=== PATIENT | female | born 1980 | race Caucasian/White ===

== ENCOUNTER 2022-04-03 16:15 | Outpatient (CLI) | payer MEDICAID, SELFPAY ==
[2022-04-03 22:25] LABS: Albumin* 2.9 g/dL (3.3-5.0); Chloride* 109 mmol/L (96-114); Sodium* 136 mmol/L (135-149)
[2022-04-03 22:26] LABS: Potassium* 3.7 mmol/L (3.6-5.1)
[2022-04-03 22:28] LABS: Alkaline Phosphatase* 255 U/L (40-150); Aspartate Amino Transferase* 169 U/L (12-35); Bilirubin Total* 2.5 mg/dL (0.1-1.5); Blood Urea Nitrogen* 5 mg/dL (5-24); Calcium* 7.8 mg/dL (8.4-10.6); Carbon Dioxide* 26 mmol/L (20-32); Cholesterol* 122 mg/dL (90-199); Creatinine* 0.6 mg/dL (0.5-1.5); Estimated Glomerular Filt Rate 116 ml/min; Glucose* 93 mg/dL (60-115); Total Protein* 9.2 g/dL (6.0-8.3); Triglycerides* 120 mg/dL (40-149)
[2022-04-03 22:29] LABS: Alanine Aminotransferase* 36 U/L (4-35); HDL Cholesterol* 20 mg/dL (>=50); LDL Cholesterol Calculated 78 mg/dL (<100)
[2022-04-03 23:14] LABS: Hepatitis C Virus Antibody* Negative (Negative)
[2022-04-03 23:18] LABS: Vitamin B12* 683 pg/mL (243-894)
[2022-04-03 23:45] LABS: Free T4 Free Thyroxine* 2.11 ng/dL (0.70-1.85)
[2022-04-07 00:57] LABS: Cardiolipin Antibody IgA <10 APL (<=11); Cardiolipin Antibody IgG <10 GPL (<=14); Cardiolipin Antibody IgM 11 MPL (<=12)
[2022-04-09 15:30] LABS: Prothrombin Time 21.7 sec (12.0-15.5); dRVVT Screen 27 sec (33-44)
[2022-04-09 19:13] LABS: SSA-60 (Ro60) (ENA) IgG 127 AU/mL (0-40); SSA52 (Ro52) (ENA) IgG 129 AU/mL (0-40)
== END 2022-04-03 16:16 | disposition home or self-care (01) ==
PROVIDERS: Visit Provider Family Medicine
DX: Z00.00 Encounter for general adult medical examination without abnormal findings (principal); M35.00 Sjogren syndrome, unspecified; N96 Recurrent pregnancy loss; R19.7 Diarrhea, unspecified; E53.8 Deficiency of other specified B group vitamins; E03.9 Hypothyroidism, unspecified; E66.01 Morbid (severe) obesity due to excess calories; Z78.9 Other specified health status; Z11.59 Encounter for screening for other viral diseases; Z13.6 Encounter for screening for cardiovascular disorders; R79.89 Other specified abnormal findings of blood chemistry
CPT/HCPCS: 80053; 80061; 82607; 82746; 84100; 84439; 84443; 85610; 85613; 85730; 86146; 86147; 86235; 86803

== ENCOUNTER 2022-04-04 11:52 | Outpatient (CLI) | payer MEDICAID, SELFPAY | END 2022-04-04 11:53 | disposition home or self-care (01) | PROVIDERS: Visit Provider Family Medicine | DX: E83.51 Hypocalcemia (principal) | CPT/HCPCS: 82310; 82397; 83970 ==

== ENCOUNTER 2022-04-23 10:43 | Outpatient (CLI) | payer MEDICAID, SELFPAY ==
--- NOTE | 2022-04-23 10:45 | CRLHL7_ITS ---
For Patients: As a result of the Century Cures Act, medical imaging exams and procedure reports are released immediately into your electronic medical record. You may view this report before your referring provider. If you have questions, please contact your health care provider. INDICATION: RUQ PAIN COMPARISON: CT 11/23/2020 TECHNIQUE: Real time amador scale imaging and color Doppler analysis was performed of the right upper quadrant. FINDINGS: The patient`s liver is of normal size and has diffusely coarsened echogenicity. There is a normal appearance of the hepatic IVC and proximal abdominal aorta. There is no evidence of ascites. The gallbladder is of normal size and there is no evidence of intraluminal stones. Mild gallbladder sludge again noted. The gallbladder wall measures 3 mm in thickness. The common bile duct is of normal size and measures 5 mm in diameter at the level of the yeimi hepatis. The pancreas appears normal. There is no evidence of a stone or hydronephrosis within the right kidney. The right kidney measures 14.4 cm in length. IMPRESSION: Mild gallbladder sludge, similar to the prior study. Diffuse hepatic steatosis, also unchanged. Dictated by Brendon Vincent MD @ 04/23/2022 11:58:21 AM (Electronically Signed)
== END 2022-04-23 10:44 | disposition home or self-care (01) ==
LOC: US 10:44
PROVIDERS: PCP Family Medicine; Visit Provider Family Medicine
DX: R10.11 Right upper quadrant pain (principal); R19.7 Diarrhea, unspecified; R01.1 Cardiac murmur, unspecified; E03.9 Hypothyroidism, unspecified
CPT/HCPCS: 76705

== ENCOUNTER 2022-04-25 13:34 | Outpatient (CLI) | payer MEDICAID, SELFPAY ==
[2022-04-25 17:41] LABS: Immature Reticulocyte Fraction 21.9 % (3.0-15.9); Reticulocyte Hemoglobin Equivi 34.4 pg (29.0-35.0); Reticulocyte Percent 2.8 % (0.5-2.0); Reticulocytes Absolute 0.08 # (0.03-0.08)
[2022-04-25 17:47] LABS: Albumin* 2.7 g/dL (3.3-5.0); Chloride* 109 mmol/L (96-114); Potassium* 3.7 mmol/L (3.6-5.1); Sodium* 136 mmol/L (135-149)
[2022-04-25 17:49] LABS: Bilirubin Total* 2.5 mg/dL (0.1-1.5); Creatinine* 0.6 mg/dL (0.5-1.5); Estimated Glomerular Filt Rate 116 ml/min
[2022-04-25 17:50] LABS: Alanine Aminotransferase* 29 U/L (4-35); Alkaline Phosphatase* 183 U/L (40-150); Aspartate Amino Transferase* 90 U/L (12-35); Blood Urea Nitrogen* 4 mg/dL (5-24); Carbon Dioxide* 24 mmol/L (20-32); Total Protein* 8.7 g/dL (6.0-8.3)
[2022-04-25 17:51] LABS: Calcium* 7.9 mg/dL (8.4-10.6); Glucose* 96 mg/dL (60-115); Magnesium* 1.4 mg/dL (1.5-2.6)
[2022-04-25 17:53] LABS: C Reactive Protein* 0.6 mg/dL (0.5-1.0)
[2022-04-25 18:07] LABS: Vitamin D 25 Hydroxy* 21 ng/mL (30-80)
[2022-04-25 18:12] LABS: INR 1.66 (0.91-1.10); Prothrombin Time 20.5 Seconds
[2022-04-25 18:15] LABS: Partial Thromboplastin Time* 37 Seconds (23-33)
[2022-04-25 18:31] LABS: HIV 1/2/P24 Combo Screen* Negative (Negative)
[2022-04-25 18:57] LABS: Fibrinogen* 111 mg/dL (200-450)
[2022-04-27 17:24] LABS: Follicle Stimulating Hormone 10.8 IU/L
[2022-04-27 19:16] LABS: Anti-Nuclear Ab(ANA)IgG ELISA Detected (None Detected)
[2022-04-29 14:18] LABS: ANA Pattern Speckled; ANA Titer >1:2560; Antinuclear AntibodyHEp-2 Detected (<1:80)
[2022-05-02 05:43] LABS: Calcium/Creatinine Ratio Urine 162 mg/g (20-300); Hours Collected Random hr; Total Volume Random mL
== END 2022-04-25 13:35 | disposition home or self-care (01) ==
LOC: LKVREF 13:34
PROVIDERS: PCP Family Medicine; Visit Provider Family Medicine
DX: D64.9 Anemia, unspecified (principal); E03.9 Hypothyroidism, unspecified; E83.51 Hypocalcemia; M35.00 Sjogren syndrome, unspecified; N96 Recurrent pregnancy loss; R79.1 Abnormal coagulation profile; R79.89 Other specified abnormal findings of blood chemistry
CPT/HCPCS: 80053; 82306; 82330; 82340; 83001; 83735; 84439; 84443; 85045; 85384; 85610; 85730; 86039; 86140; 86703; 86860; 86870; 86880

== ENCOUNTER 2022-05-02 08:48 | Outpatient (CLI) | payer MEDICAID, SELFPAY | END 2022-05-02 08:49 | disposition home or self-care (01) | LOC: RAD 08:51 | PROVIDERS: PCP Family Medicine; Visit Provider Family Medicine | DX: R01.1 Cardiac murmur, unspecified (principal); I34.0 Nonrheumatic mitral (valve) insufficiency; I07.1 Rheumatic tricuspid insufficiency | CPT/HCPCS: 93306 ==

== ENCOUNTER 2022-06-04 08:03 | Outpatient (CLI) | payer MEDICAID, SELFPAY ==
[2022-06-04 14:54] LABS: Albumin* 2.8 g/dL (3.3-5.0); Chloride* 112 mmol/L (96-114); Sodium* 138 mmol/L (135-149)
[2022-06-04 14:55] LABS: Potassium* 4.1 mmol/L (3.6-5.1)
[2022-06-04 14:57] LABS: Alkaline Phosphatase* 119 U/L (40-150); Aspartate Amino Transferase* 67 U/L (12-35); Bilirubin Total* 2.1 mg/dL (0.1-1.5); Blood Urea Nitrogen* 5 mg/dL (5-24); Carbon Dioxide* 21 mmol/L (20-32); Creatinine* 0.6 mg/dL (0.5-1.5); Estimated Glomerular Filt Rate 116 ml/min; Total Protein* 8.3 g/dL (6.0-8.3)
[2022-06-04 14:58] LABS: Alanine Aminotransferase* 27 U/L (4-35); Calcium* 7.9 mg/dL (8.4-10.6); Glucose* 90 mg/dL (60-115)
[2022-06-04 15:28] LABS: Thyroid Stimulating Hormone* 0.811 uIU/mL (0.270-4.20)
== END 2022-06-04 08:04 | disposition home or self-care (01) ==
PROVIDERS: PCP Family Medicine; Visit Provider Family Medicine
DX: E03.9 Hypothyroidism, unspecified (principal); E83.51 Hypocalcemia; R79.89 Other specified abnormal findings of blood chemistry
CPT/HCPCS: 80053; 84443

== ENCOUNTER 2022-06-30 10:40 | Outpatient (CLI) | payer MEDICAID, SELFPAY | END 2022-06-30 10:41 | disposition home or self-care (01) | LOC: NFLDREF 07-03 14:28 | PROVIDERS: PCP Family Medicine; Referring Provider Family Medicine; Visit Provider Family Medicine | DX: E03.9 Hypothyroidism, unspecified (principal); R79.89 Other specified abnormal findings of blood chemistry | CPT/HCPCS: 82306; 84443; 84450; 84460 ==

== ENCOUNTER 2022-06-30 10:47 | Outpatient (CLI) | payer MEDICAID, SELFPAY ==
--- NOTE | 2022-06-30 11:30 | CRLHL7_ITS ---
For Patients: As a result of the Century Cures Act, medical imaging exams and procedure reports are released immediately into your electronic medical record. You may view this report before your referring provider. If you have questions, please contact your health care provider. BILATERAL SCREENING MAMMOGRAM WITH COMPUTER-AIDED DETECTION AND TOMOSYNTHESIS TECHNIQUE: CC and MLO views were obtained. These mammographic images have been obtained using full-field digital technique. These mammographic images were interpreted with the benefit of computer-aided detection. Breast Tomosynthesis was used in this interpretation. COMPARISON FILM: Baseline. FINDINGS: There are scattered areas of fibroglandular density IMPRESSION: There is no radiographic evidence for malignancy. ASSESSMENT: BI-RADS Category 1: Negative RECOMMENDATION: Routine screening mammogram in 1 year. A lay language report of this examination will be provided to the patient. Brendon Vincent M.D. Diagnostic Radiologist [email or web address] JAMES/Dictated by: Brendon Vincent MD @ 06/30/2022 12:07:00 PM (Electronically Signed)
== END 2022-06-30 10:48 | disposition home or self-care (01) ==
PROVIDERS: PCP Family Medicine; Visit Provider Family Medicine
DX: Z12.31 Encounter for screening mammogram for malignant neoplasm of breast (principal)
CPT/HCPCS: 77063; 77067

== ENCOUNTER 2022-08-25 09:36 | Outpatient (CLI) | payer MEDICAID, SELFPAY ==
[2022-08-25 13:20] LABS: Free T4 Free Thyroxine* 2.59 ng/dL (0.70-1.85)
== END 2022-08-25 09:37 | disposition home or self-care (01) ==
LOC: FRMREF 12:06
PROVIDERS: PCP Family Medicine; Referring Provider Family Medicine; Visit Provider Family Medicine
DX: E03.9 Hypothyroidism, unspecified (principal)
CPT/HCPCS: 84439; 84443

== ENCOUNTER 2023-04-02 22:13 | Outpatient (REF) | payer MEDICAID, SELFPAY ==
--- OUTSIDE RECORDS SUMMARY | 2023-04-02 22:22 | XMS_ITS | Continuity of Care Document ---
Author Name Unknown Organization [facility] Address [address] [place] [address] Phone Care Team Providers Care Linen Sorter Name Role Phone Marly Gaines MD Unavailable Unavailable Allergies, Adverse Reactions, Alerts Substance Reaction Status Criticality No Known Allergies Active No Inform ation Medications Medication Instructions Dosage Effective Dates (start - stop) Status Comments cevimeline 30 mg capsule take 1 capsule by oral route 3 times every day as needed 30 MG - Active levothyroxine 112 mcg capsule take 1 capsule by oral route every day 112 MCG - Active Vitamin D3 50 mcg (2,000 unit) tablet take 1 Tablet by Oral route every day [address] - [address] - ER 3 mg capsule,delayed,exte nded release take 3 capsule by oral route every evening 9 MG - Active levothyroxine 125 mcg capsule take 1 capsule by oral route every day 125 MCG - No Longer Active pilocarpine 5 mg tablet take 1 tablet by oral route 3 times every day 5 MG - No Longer Active Procedures Procedure Date Office/Outpatient Visit, Est Office/Outpatient Visit, New Routine Venipuncture Specimen Handling Complete Cbc WAuto Diff Wbc Rbc Sed Rate, Nonautomated Assay Of Creatinine Transferase (Ast) (Sgot) Alanine Amino (Alt) (Sgpt) CReactive Protein Dna Antibody, Single Strand Dna Antibody, [place] Nuclear Antigen Antibodies Office/Outpatient Visit, Est Routine Venipuncture Assay Of Serum Albumin Assay Of Creatinine Transferase (Ast) (Sgot) Alanine Amino (Alt) (Sgpt) Complete Cbc, Automated Office/Outpatient Visit, Est Routine Venipuncture Complete Cbc, Automated Assay Of Serum Albumin Assay Of Creatinine Transferase (Ast) (Sgot) Alanine Amino (Alt) (Sgpt) Office/Outpatient Visit, Est Routine Venipuncture Transferase (Ast) (Sgot) Alanine Amino (Alt) (Sgpt) Complete Cbc, Automated Office/Outpatient Visit, New Routine Venipuncture Specimen Handling Complete Cbc WAuto Diff Wbc Rbc Sed Rate, Nonautomated Assay Of Serum Albumin Assay Of Creatinine Transferase (Ast) (Sgot) Alanine Amino (Alt) (Sgpt) CReactive Protein Dna Antibody, Single Strand Dna Antibody, [place] Nuclear Antigen Antibodies Rheumatoid Factor, IGM Rheumatoid Factor, IGG, IGA Advance Directives Directive Yes / No Effective Date File Name No Information Encounters Encounter Description Practice Location Reason(s) For Visit Diagnoses Date Provider Providers Copied on Encounter Office/Outpa tient Visit, Est [facility], [address], [place], [address], [place] tel:[phone] [facility] Follow Up of Sjogren's (chief complaint) Sjogren syndrome with keratoconjun ctivitisAbno rmal results of liver function studies 3 Eder Luke. [facility] [address], [place], [address], [place]. tel:[phone] Referring Provider: Marly Winslow, [facility] [address], [place], [address]. tel:[phone] Office/Outpa tient Visit, New [facility], [address], [place], [address], [place] tel:[phone] [facility] Sjogren's (chief complaint) Sjogren syndrome with keratoconjun ctivitisElev ation of levels of liver transaminase levelsMiscar riageAnemia 3 Eder Luek. [facility] [address], [place], [address], [place]. tel:[phone] Referring Provider: Marly Winslow, [facility] [address], [place], [address]. tel:[phone] Office/Outpa tient Visit, Est [facility], [address], [place], [address], [place] tel:[phone] [facility] , Sjogren's (chief complaint) LeukopeniaSj ogren syndromeElev ated liver enzymesBone [facility] risk medication monitoring 201 [address] Espinoza. [facility] [address], [place], [address], [place]. tel:[phone] Referring Provider: Alexis Winslow, [facility] [address], [place], [address]. tel:[phone] Office/Outpa tient Visit, Est [facility], [address], [place], [address], [place] tel:[phone] [facility] , Sjogren syndromeElev ated liver enzymesBanner Boswell Medical Centere [facility] centerHigh risk medication monitoringSt. Bernards [facility] 8 Ed Espinoza. [facility] [address], [place], [address], [place]. tel:[phone] Referring Provider: Alexis Winslow, [facility] [address], [place], [address]. tel:[phone] Office/Outpa tient Visit, Est [facility], [address], [place], [address], [place] tel:[phone] [facility] , Sjogren's (chief complaint) Sjogren syndromeHigh risk medication monitoringBo [facility] ed liver enzymes 8 Ed Espinoza. [facility] [address], [place], [address], [place]. tel:[phone] Referring Provider: Alexis Winslow, [facility] [address], [place], [address]. tel:[phone] Office/Outpa tient Visit, New [facility], [address], [place], [address], [place] tel:[phone] [facility] , Abnormal Lab Study (chief complaint) Positive AntibodyElev ated liver enzymes 8 Ed Espinoza. [facility] [address], [place], [address], . tel:[phone] Referring Provider: Alexis Winslow, [facility]ana [address], [place], [address]. tel:[phone] Family History Family Member Type Diagnosis Age At Onset Problem (finding) No family hist ory of Systemic lupus erythematosus Problem Family history of hypertensi on Payers Payer name Insurance type Covered alliance party ID Authoriza tiemmanuel(s) Bashir MASON [id number] Social History Type Description Quantity Date Captured Comments Alcohol Use Details Caffeine Use Details No Tobacco Use Status Ex-cigarette smoker Smoking Status Former smoker Tremaine garduno 1 child Smoking Tobacco Use Details Cigarette: Age Stopped: 26 Cigarette: No Details Available Sex Female Vital Signs Date / Time: Height Weight BMI Pulse Rate Blood Pressure Temperature Respiratory Rate Body Surface Area Head Circumference Head Circ. Percentile Wt./Oliver. Percentile BMI percentile Pulse Ox Inhaled Ox 11:04 AM 66.00 in 112.037 kg (247.00 lbs) 39.8 7 kg/m eter (2) 108/60 mm[Hg] 98.40 F Chief Complaint And Reason For Visit From encounter dated '09/08/2022 11:00'. Follow Up of Sjogren's (chief complaint) Reason For Referral Reason For Referral No Information Plan Of Treatment Date Type Action Status Appointment Emma Flower BOOKED History Of Present Illness Encounter Date Complaint History Of Prese nt Illness Follow Up of Sjogren's Sjogren's Sjogren's Sjogren's Sjogren's Abnormal Lab Study Functional Status Date Functional Assessmen t No Information Instructions Date Instruction Additional Infor mation No Information Assessments Type Assessment Date assessment Sjogren syndrome with keratoconj unctivitis assessment Abnormal results of liver functi on studies Patient Care Teams Name Effective Dates (start - stop) Status Members No Information
--- OUTSIDE RECORDS SUMMARY | 2023-04-02 22:22 | XMS_ITS | Continuity of Care Document ---
Author Name Unknown Organization [facility] Address [address] [address] [place] [address] Phone Care Team Providers Care Report Writer Name Role Phone Malka DINORAHSofia Unavailable Unavailable Allergies, Adverse Reactions, Alerts Substance Reaction Status Criticality No Known Allergies Active No Inform ation Medications Medication Instructions Dosage Effective Dates (start - stop) Status Comments Herbal Medications/Suppleme nts unknown flax seed oil - Active COLLAGEN (unknown strength) take 1 capsule by oral route every day Not Available - Active budesonide DR - ER 3 mg capsule,delayed,exte nded release take 1 capsule by ORAL route every day in the morning 3 MG - Active budesonide DR - ER 3 mg capsule,delayed,exte nded release take 3 capsule by ORAL route every day in the morning 9 MG - Active levothyroxine 125 mcg tablet take 1 tablet by oral route every day 125 MCG - Active VITAMINS (unknown strength) take 1 tablet by oral route every day Not Available - Active Vitamin D3 50 mcg (2,000 unit) tablet take 1 tablet by oral route every morning 1 tablet - Active cevimeline 30 mg capsule take 1 capsule by oral route 4 times every day 30 MG - Active Procedures Procedure Date Offic/outpt E&m Estab Mod-hi 2 Routine Serum Collection Routine Serum Collection Routine Serum Collection Offic/outpt E&m Estab Mod-hi 2 Routine Serum Collection Telephone E&M III 21-30 Min MELLISA Routine Serum Collection Ugi Endo; Dx W/wo Collec Specm New Level 4 Advance Directives Directive Yes / No Effective Date File Name No Information Encounters Encounter Description Practice Location Reason(s) For Visit Diagnoses Date Provider Providers Copied on Encounter [facility], [address] [address], [place], [id number], [place] tel:[phone] [facility] No Information 3 Malka Black. [address] [facility], [address], [id number], [place]. tel:[phone] Offic/outpt E&m Estab Mod-hi 2 [facility], [address] [address], [place], [id number], [place] tel:[phone] [facility] GI Symptoms or Concerns (chief complaint) Alcoholic cirrhosis of liver without ascitesAutoimm une hepatitis 3 Malka Black. [address] [facility], [address], [id number], [place]. tel:[phone] Referring Provider: Referral Self, USE FOR SELF REFERRALS. [facility], [address] [address], [place], [id number], [place] tel:[phone] [facility] Alcoholic cirrhosis of liver without ascitesAbnorma l liver function test 3 [place] [facility] Tonia. [address] [facility], [facility] [address] [place], [place], [id number], [place]. tel:[phone] [facility], [address] [address], [place], [id number], [place] tel:[phone] [facility] Autoimmune hepatitis 3 Malka Black. [address] [facility], [address], [id number], [place]. tel:[phone] Referring Provider: Referral Self, USE FOR SELF REFERRALS. [facility], [address] [address], [place], [id number], [place] tel:[phone] [facility] Autoimmune hepatitis 3 Malka Black. [address] [facility], [address], [place], [place], [id number], [place]. tel:[phone] [facility], [address] [address], [place], [id number], [place] tel:[phone] [facility] Other specified abnormal findings of blood chemistry 3 Malka Black. [address] [facility], [address], [id number], [place]. tel:[phone] Referring Provider: Referral Self, USE FOR SELF REFERRALS. [facility], [address] [address], [place], [id number], [place] tel:[phone] [facility] Abnormal liver function test 3 Marty Bennett. [address] [facility], [facility] [address] [place], [place], [id number], [place]. tel:[phone] [facility], [address] [address], [place], [id number], [place] tel:[phone] [facility] Unspecified cirrhosis of liver 3 Malka Black. [address] [facility], [facility] [address] [place], [place], [id number], [place]. tel:[phone] Referring Provider: Referral Self, USE FOR SELF REFERRALS. Offic/outpt E&m Estab Mod-hi 2 [facility], [address] [address], [place], [id number], [place] tel:[phone] [facility] GI Symptoms or Concerns (chief complaint) Cirrhosis of liver without ascites, unspecified hepatic cirrhosis type 3 Malka Black. [address] [facility], [facility] [address], [place], [place], [id number], [place]. tel:[phone] Referring Provider: Sofia COPEALND, [address] [facility] [address], [place], [address] . tel:[phone] [facility], [address] [address], [place], [id number], [place] tel:[phone] [facility] Alcoholic cirrhosis of liver without ascites 3 Malka Black. [address] [facility], [facility] [address], [place], [id number], [place]. tel:[phone] Referring Provider: Sofia COPELAND, [address] [facility] [address], [place], [address] . tel:[phone] [facility], [address] [address], [place], [id number], [place] tel:[phone] [facility] No Information 3 Malka Black. [address] [facility], [address], [id number], [place]. tel:[phone] Telephone E&M III 21-30 Min MD MELLISA [facility], [address] [address], [place], [id number], [place] tel:[phone] [facility] GI Symptoms or Concerns (chief complaint) Alcoholic cirrhosis of liver without ascitesAutoimm une hepatitis Jul-2 3 Malka Black. [address] [facility], [facility] [address], [place], [id number], [place]. [phone] Referring Provider: Referral Self, USE FOR SELF REFERRALS. [facility], [address] [address], [place], [id number], [place] tel:[phone] [facility] Alcoholic cirrhosis of liver without ascites Jul-2 3 Malka Black. [address] [facility], [facility] [address], [place], [id number], [place]. tel:[phone] Referring Provider: Referral Self, USE FOR SELF REFERRALS. [facility], [address] [address], [place], [id number], [place] tel:[phone] [facility] GI Symptoms or Concerns (chief complaint) Portal hypertensive gastropathyPor mirza hypertension 3 Froy Malagon. [address] [facility], [facility] [address], [place], [id number], [place]. tel:[phone] Referring Provider: Referral Self, USE FOR SELF REFERRALS. [facility], [address] [address], [place], [id number], [place] tel:[phone] [facility] Alcoholic cirrhosis of liver without ascites 3 [facility] Sofia. [address] [facility], [facility] [address], [place], [id number], [place]. tel:[phone] [facility] Level 4 [facility], [address] [address], [place], [id number], [place] tel:[phone] [facility] GI Symptoms or Concerns (chief complaint) Abnormal liver function test 3 [facility] Sofia. [address] [facility], [facility] [address], [place], [id number], [place]. tel:[phone] [facility], [address] [address], [place], [id number], [place] tel:[phone] No Information 3 No Information Referring Provider: Cristiano COPELAND, [address], [place], [address]. tel:[phone] Family History Family Member Type Diagnosis Age At Onset Father Problem (finding) Alcoholism Immunizations Vaccine Date Status Comments tetanus and diphtheria toxoi ds, adsorbed, preservative free, for adult use (5 Lf of tetanus toxoid and 2 Lf of diphtheria toxoid) administered Note: [facility] bi-direct ional interface ; Source: Other Registry Payers Payer name Insurance type Covered democrat ID Authoriza tiemmanuel(s) Farshadjohn ISABELLA CI [id number] Social History Type Description Quantity Date Captured Comments Sex Female Smoking Status No Information Chief Complaint And Reason For Visit No Information Reason For Referral Reason For Referral No Information Plan Of Treatment Date Type Action Status Referral Ordered: FibroScan With CAP Appointment date/timeframe: 04/07/2023 ordered Referral Ordered: Ultrasound Liver Appointment date/timeframe: 03/12/2023 ordered Referral Ordered: EGD Appointment date/timeframe: 08/07/2022 ordered Referral Ordered: Hepatoma Protocol Appointment date/timeframe: First Available ordered Referral Ordered: Liver Biopsy With Ultrasound Guidance Appointment date/timeframe: 07/23/2022 ordered Appointment Emma Flower BOOKED History Of Present Illness Encounter Date Complaint History Of Prese nt Illness GI Symptoms or Concerns Emma agosto is a 42-year-old female who presents to the clinic for followup regarding liver cirrhosis. She was last seen by myself via a virtual visit in July 2022.The patient has a history of hypothyroidism and Sjogren's disease. Her medications currently include Synthroid as well as cevimeline, vitamin, vitamin D, turmeric, CBD, and budesonide. She has been extensively evaluated by Hematology in the past for abnormal coagulation study. In early April 2022, she was found to have an INR of 1.66, albumin of 2.7, total bilirubin of 2.5, AST of 90, ALT of 29, alkaline phosphatase of 184, and a positive antinuclear antibody.The patient does have a history of alcohol use and reports that she has previously been told that she has fatty liver. Her last alcoholic drink was in April 2022. Prior to stopping drinking, she reports that she is having 2 to 3 drinks most nights of the week. 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 We did draw immunoglobulins on August 14 and she was found to have an IgG of 4105.A liver biopsy was performed on July 24, 2022, and showed a cirrhotic liver with background steatohepatitis with prominent Gisele-Denk bodies. 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 She was also noted to have a lymphoplasmacytic portal inflammation present. Given this as well as elevated autoantibodies, a concurrent autoimmune hepatitis could not be fully ruled out.Upper endoscopy for variceal screening was completed on August 07, 2022. She was found to have diffuse portal hypertensive gastropathy. The exam was otherwise normal.Blood work on August 18 showed a normal ALT level and a mildly elevated AST level of 54. The patient has taken prednisone in the past with significant side effects and so I did not recommend starting that medication. She does have significant anxiety regarding her elevated liver function testing and would like to trial a medication for possible autoimmune hepatitis. Therefore, we started budesonide 9 mg daily. Has noted some irregularity in her menstrual cycle, but otherwise does not have any significant side effects. After 3 months of budesonide 9 milligrams daily, lab work on 11/25/22 showed AST and ALT within normal limits, total bilirubin of 1.3 indirect bilirubin of 0.45. Albumin 3.5. She was decreased to budesonide 6 milligrams daily at that time. Repeat blood work on 12/18 showed mildly elevated alk-phos at 123, albumin 3.4, ALT normal, AST 42, total and direct bilirubin normal. Labs were rechecked 2 weeks later and all found to be within normal limits save for albumin 3.3. She was then decreased to budesonide 3 milligrams daily in the beginning of December.Most recent blood work on 02/12 does show total bilirubin 1.3, direct bilirubin 0.51, AST 57, and remaining hepatic function tests normal. Liver ultrasound performed on 02/17/2023 shows no ascites in the included abdomen, no focal hepatic lesions, and uncomplicated cholelithiasis. Slight increase in echogenicity of the hepatic parenchyma. Patient states today that she has overall been doing well. Continues on budesonide 3 mg daily. She denies any concerning symptoms including confusion, abdominal pain or distention, peripheral edema, black or bloody stools. She has been continuing to lose weight, she is down to 210 pounds today. She has been focusing on increasing her protein daily, as well as continuing a low carb diet. She started a new job where she is getting more steps in daily. GI Symptoms or Concerns Emma agosto is a 42-year-old female who presents to the clinic for followup regarding liver cirrhosis. She was last seen by myself via a virtual visit in July 2022.The patient has a history of hypothyroidism and Sjogren's disease. Her medications currently include Synthroid as well as cevimeline, vitamin, vitamin D, turmeric, CBD, and budesonide. She has been extensively evaluated by Hematology in the past for abnormal coagulation study. In early April 2022, she was found to have an INR of 1.66, albumin of 2.7, total bilirubin of 2.5, AST of 90, ALT of 29, alkaline phosphatase of 184, and a positive antinuclear antibody.The patient does have a history of alcohol use and reports that she has previously been told that she has fatty liver. Her last alcoholic drink was in April 2022. Prior to stopping drinking, she reports that she is having 2 to 3 drinks most nights of the week. There is no family history of liver disease.The patient reports that she GI Symptoms or Concerns Emma agosto is a 41-year-old female who presents to clinic for follow-up regarding liver cirrhosis. The visit takes place via a telephone visit. The patient consents to the visit. The patient was last evaluated by myself on July 01, 2022.The patient has a history of hypothyroidism and Sjogren's disease. Her medications currently include Synthroid as well as cevimeline, vitamin, vitamin D, turmeric, and CBD. She was extensively evaluated by Hematology for abnormal coagulation studies. In March 2022, she was found to have a hemoglobin of 10.4. This was normocytic. She did mention some abdominal cramping and loose stool with occasional dark stool at that time. Fecal occult blood testing was negative. Testing in early April 2022 revealed an INR of 1.66, albumin of 2.7, total bilirubin of 2.5, AST of 90, ALT of 29, alkaline phosphatase of 184, and a positive antinuclear antibody.The patient does have a history of alcohol use and reports that she has previo GI Symptoms or Concerns GI Symptoms or Concerns Emma agosto is a 41-year-old female who presents to clinic for consultation at the request of her primary care physician, Dr. Nelly Estevez regarding abnormal liver function. The visit takes place via a virtual visit. The patient consents to the visit.The patient has a history of hypothyroidism and Sjogren's disease. Her medications currently include Synthroid as well as cevimeline, vitamin, vitamin D, turmeric, and CBD. She was extensively evaluated by Hematology for abnormal coagulation studies. In March 2022, she was found to have a hemoglobin of 10.4. This was normocytic. She did mention some abdominal cramping and loose stool with occasional dark stool at that time. Fecal occult blood testing was negative. Testing in early April 2022 revealed an INR of 1.66, albumin of 2.7, total bilirubin of 2.5, AST of 90, ALT of 29, alkaline phosphatase of 184, and a positive antinuclear antibody.The patient does have a history of alcohol use and reports that she has previously been told that she has fatty liver. She has currently not had any alcohol for 2 months. Prior to stopping drinking, she reports that she was having 2 to 3 drinks most nights of the week. There is no family history of liver disease.Blood work on May 20 showed an albumin of 2.7, total bilirubin of 2, AST of 102, white blood cell count of 2.8, platelets of 145, and INR of 1.66. Her hemoglobin did normalize. She reports that she was also found to have an elevated ferritin level and she also reports an elevated smooth muscle antibody, which was completed through her superintendent warehouse's office. I do not have that lab work to review, but we will request it. It does not appear that she has had any further imaging or evaluation of her liver.The patient denies any abdominal pain, nausea, or vomiting. She does feel fatigue. She denies any icterus or jaundice, rashes or itching, abdominal distention or lower extremity swelling. As mentioned above, she has not had any alcohol for the last 2 months. Functional Status Date Functional Assessmen t No Information Instructions Date Instruction Additional Infor mation No Information Assessments Type Assessment Date No Information Patient Care Teams Name Effective Dates (start - stop) Status Members No Information
[2023-04-02 23:53] LABS: Aspartate Amino Transferase* 47 U/L (12-35); Bilirubin Direct* 0.6 mg/dL (0.0-0.5); Bilirubin Total* 2.2 mg/dL (0.1-1.5); Total Protein* 8.4 g/dL (6.0-8.3)
[2023-04-02 23:54] LABS: Alanine Aminotransferase* 24 U/L (4-35); Alkaline Phosphatase* 97 U/L (40-150)
== END 2023-04-02 22:14 | disposition home or self-care (01) ==
LOC: NPINS 22:13
PROVIDERS: PCP Family Medicine
DX: K70.30 Alcoholic cirrhosis of liver without ascites (principal); R79.89 Other specified abnormal findings of blood chemistry; E03.9 Hypothyroidism, unspecified; Z79.899 Other long term (current) drug therapy
CPT/HCPCS: 80076; 84443

== ENCOUNTER 2023-05-20 13:11 | Outpatient (CLI) | payer MEDICAID, SELFPAY ==
--- OUTSIDE RECORDS SUMMARY | 2023-05-22 06:53 | XMS_ITS | Encounter Summary ---
Author Name Unknown Organization [place] Address [facility] [place] [address] Care Team Providers Care Sports Book Writer Name Role Phone Resident/Fellow, Physician Unavailable Michelleva Nelly So MD Primary Care Provider [phone] [phone] Reason for Referral * Therapeutic Imaging/IR (Routine: Next available opening) - Closed Specialty Diagnoses / Procedures Referred By Contac t Referred To Contact Radiology. Diagnoses Abnormal liver function test Procedures US Biopsy Liver IR Referral Sofia Ace PA-C [address] [place] [address] Referral ID Status Reason Start Date Expiration Date Visits Re quested Visits Authorized [id number] Closed 07/10/2022 07/10/2023 1 1 Reason for Visit * Therapeutic Imaging/IR (Routine: Next available opening) - Closed Specialty Diagnoses / Procedures Referred By Contnina aponte Referred To Contact Radiology. Diagnoses Abnormal liver function test Procedures US Biopsy Liver IR Referral Sofia Ace PA-C [address] [place] [address] Referral ID Status Reason Start Date Expiration Date Visits Re quested Visits Authorized [id number] Closed 07/10/2022 07/10/2023 1 1 Encounter Details Date Type Department Care Team (Late st Contact Info) Description 07/24/2022 7:37 AM CDT - 07/24/2022 11:59 PM CDT Hospital Encounter [facility] [address] [place] [address] Sofia Ace PA-C [address] [place] [address] Danielle Estevez MD [address] [place] [address] Abnormal liver function test Discharge Disposition: Home or Self Care Social History Tobacco Use Types Packs/Day Years Used Date Smoking Tobacco: Former Cigarettes Smokeless Tobacco: Never Sex and Gender Information Value Date Recorded Sex Assigned at Not on file Gender Identity Not on file Sexual Orientation Not on file COVID-19 Exposure Response Date Recorded In the last 10 days, have yo u been in contact with someone who was confirmed or suspected to have Coronavirus/COVID-19? No / Unsure 07/24/2022 7:03 AM CDT documented as of this encounter Last Filed Vital Signs Vital Sign Reading Time Taken Comments Blood Pressure 106/65 07/24/2022 10:30 AM CDT Pulse 73 07/24/2022 10:30 AM CDT Temperature - - Respiratory Rate - - Oxygen Saturation 99% 07/24/2022 10:30 AM CDT Inhaled Oxygen Concentration - - Weight - - Height - - Body Mass Index - - documented in this encounter Medications at Time of Discharge Medication Sig Dispensed Refills Start Date End Date levothyroxine (SYNTHROID/LEVOTHROID) 150 MCG tablet Take 1 tablet by mouth daily at 2 pm 0 01/15/2022 pilocarpine (SALAGEN) 5 MG tablet Take 1 tablet by mouth 3 times daily 0 05/06/2022 documented as of this encounter Progress Notes * Aliya Multani RN - 07/24/2022 10:41 AM CDT Ultrasound liver biopsy completed per Dr. Lozano without difficulty, patient declined sedation. All discharge criteria were met and patient discharged to home ambulatory with spouse in stable condition. documented in this encounter Plan of Treatment Not on file documented as of this encounter Procedures Procedure Name Priority Date/Time Associated Diagnosis Comments US BIOPSY LIVER Routine: Next available opening 07/24/2022 9:24 AM CDT Abnormal liver function test SURGICAL PATHOLOGY EXAM Routine 07/24/2022 9:03 AM CDT Abnormal liver function test INR STAT 07/24/2022 7:50 AM CDT CBC WITH PLATELETS STAT 07/24/2022 7:50 AM CDT documented in this encounter Results * US Biopsy Liver (07/24/2022 9:24 AM CDT) Anatomical Region Laterality Modality Abdomen/Pelvis Ultrasound Impressions 07/24/2022 11:20 AM CDT IMPRESSION: Ultrasound guided biopsy performed as described above. RODRIGUE LOZANO MD Narrative 07/24/2022 11:20 AM CDT US BIOPSY LIVER ??07/24/2022 9:24 AM HISTORY: ??Abnormal liver function test TECHNIQUE: After obtaining informed consent, the patient was placed in a supine position on the ultrasound table. The skin overlying the area of biopsy was prepped and draped in the usual sterile manner. 1% lidocaine was injected for local anesthesia. Under ultrasound guidance, using a 17/18 gauge coaxial biopsy needle system, 3 cores were obtained from the left lobe of liver and submitted to pathology. Medications: None Sedation time: None Procedure Note Rodrigue oLzano MD - 07/24/2022 US BIOPSY LIVER 07/24/2022 9:24 AM HISTORY: Abnormal liver function test TECHNIQUE: After obtaining informed consent, the patient was placed in a supine position on the ultrasound table. The skin overlying the area of biopsy was prepped and draped in the usual sterile manner. 1% lidocaine was injected for local anesthesia. Under ultrasound guidance, using a 17/18 gauge coaxial biopsy needle system, 3 cores were obtained from the left lobe of liver and submitted to pathology. Medications: None Sedation time: None IMPRESSION: Ultrasound guided biopsy performed as described above. RODRIGUE LOZANO MD Sofia Ace PA-C [facility] ORDERABLES * Surgical Pathology Exam (07/24/2022 9:03 AM CDT) Case Report Surgical Pathology Report ? Case: [id number] ? Authorizing Provider: ??Sofia Ace PA-C ? Collected: ? 07/24/2022 09:03 AM ? Ordering Location: ? [facility] ?? Received: ?07/24/2022 09:48 AM ? Imaging ? Pathologist: ? Pamela Figueroa MD PhD ? Specimen: ?Liver, Random liver biopsy for elevated liver enzymes ? 07/25/2022 12:11 PM CDT LABORATORY Final Diagnosis Liver: Biopsy: -Cirrhotic liver (stage 4) with background steatohepatitis with prominent Gisele-Denk bodies, see comment -Lymphoplasmacytic portal inflammation present. -No malignancy identified 07/25/2022 12:11 PM [facility] Comment Steatohepatitis is a pattern of injury that can be seen secondary to metabolic etiologies or exposures to toxins such as alcohol. The presence of prominent Gisele-Denk bodies would support an alcohol induced etiology. Given elevated autoantibodies and significant lymphoplasmacytic portal inflammation, a concurrent autoimmune hepatitis cannot be entirely ruled out. 07/25/2022 12:11 PM CDT LABORATORY Gross Description A(1). Liver, Random liver biopsy for elevated liver enzymes: The specimen is received in formalin labeled with the patient's name, medical record number and other identifying information and designated random liver biopsy. It consists of 3 duque tissue cores, ranging from 0.7-1.4 cm in greatest dimension and a 0.1 cm duque tissue core fragment. Wrapped and entirely submitted in 1 cassette. (BILLY Bass ([facility])) 07/25/2022 12:11 PM T LABORATORY Microscopic Description Sections of the liver biopsy show 3 cores of hepatic parenchyma with nodular architecture. There is patchy macrovesicular steatosis. Prominent hepatocyte ballooning is present with abundant well-formed Gisele-Denk bodies. Satellitosis is present. The portal tracts and fibrous septa contain chronic inflammation with plasma cells and lymphocytes. Large bile ducts appear intact and show no evidence of injury. A bile ductular reaction is present. The lobules show patchy chronic inflammation and occasional acidophils. Trichrome stain confirms the presence of cirrhosis and highlights extensive dense perisinusoidal fibrosis. Reticulin highlights cirrhotic architecture. The iron stain demonstrates no stainable iron. PAS with diastase is negative for diastase resistant globules in zone 1 hepatocytes. All controls stain appropriately. 07/25/2022 12:11 PM [facility] Performing Labs The technical component of this testing was completed at [facility] 07/25/2022 12:11 PM [facility] Case Images 07/25/2022 12:11 PM [facility] Biopsy LIVER STRUCTURE / Unknown 07/24/2022 9:03 AM CDT 07/24/2022 9:48 AM CDT Sofia Ace PA-C LAB - [facility]ORAT[facility] [address] (1st floor, no room number) [place] [address], [facility] [phone] * (ABNORMAL) INR (07/24/2022 7:50 AM CDT) Pathologist [facility] INR 1.65(H) 0.85 - 1.15 07/24/2022 8:06 AM CDT [facility] Blood STRUCTURE OF RIGHT UPPER LIMB / Unknown Venipuncture / Unknown 07/24/2022 7:50 AM CDT 07/24/2022 7:54 AM CDT Kalina [facility] - BLOOD ORDERABLES LABORATORY [facility] [address] (1st floor, no room number) [place] [phone], [facility] [phone] * (ABNORMAL) CBC with platelets (07/24/2022 7:50 AM CDT) WBC Count 3.9(L) 4.0 - 11.0 10e3/uL 07/24/2022 7:59 AM CDT [facility] RBC Count 3.24(L) 3.80 - 5.20 10e6/uL 07/24/2022 7:59 AM CDT [facility] Hemoglobin 11.0(L) 11.7 - 15.7 g/dL 07/24/2022 7:59 AM CDT [facility] Hematocrit 31.7(L) 35.0 - 47.0 % 07/24/2022 7:59 AM CDT [facility] MCV 98 78 - 100 fL 07/24/2022 7:59 AM CDT [facility] MCH 34.0(H) 26.5 - 33.0 pg 07/24/2022 7:59 AM CDT [facility] MCHC 34.7 31.5 - 36.5 g/dL 07/24/2022 7:59 AM CDT [facility] RDW 16.2(H) 10.0 - 15.0 % 07/24/2022 7:59 AM CDT [facility] Platelet Count 120(L) 150 - 450 10e3/uL 07/24/2022 7:59 AM CDT [facility] Blood STRUCTURE OF RIGHT UPPER LIMB / Unknown Venipuncture / Unknown 07/24/2022 7:50 AM CDT 07/24/2022 7:54 AM CDT [facility] - BLOOD ORDERABLES [facility] LABORAT[facility] [address] [facility] Lab (1st floor, no room number) [place] [address], [facility] [phone] documented in this encounter Visit Diagnoses Diagnosis Abnormal liver function test Other abnormal blood chemistry documented in this encounter Administered Medications Inactive Administered Medications - up to 3 most recent administrations Medication Order MAR Action Action Date Dose Rate Site lidocaine 1 % 1-30 mL 1-30 mL, Intradermal, ONCE PRN, local anesthetic. When verbally ordered by prescriber during the procedure., Starting on Dasha 07/24/22 at 0739, For 1 dose, Dose to be divided into smaller volumes appropriate for the procedure. Provider to administer intradermally. Dose to be divided into smaller volumes appropriate for the procedure., IR Intra-procedure $Given by Other 07/24/2022 8:56 AM CDT 20 mLs documented in this encounter Care Teams Sports Book Writer Relationship Specialty Start Date [place] [address] PCP - General Family Medicine 04/25/22 Resident/Fellow, Physician 04/25/22 documented as of this encounter
--- OUTSIDE RECORDS SUMMARY | 2023-05-22 06:53 | XMS_ITS | Clinical Summary ---
Author Name Unknown Organization [place] Address [facility] [place] [address] Care Team Providers Care Boiler Engineer Name Role Phone Resident/Fellow, Physician Unavailable Nelly Davey MD Primary Care Provider [phone] [phone] Allergies No known active allergies Medications Medication Sig Dispensed Refills Start Date End Date Status levothyroxine (SYNTHROID/LEVOTHROID) 150 MCG tablet Take 1 tablet by mouth daily at 2 pm 0 01/15/2022 Active pilocarpine (SALAGEN) 5 MG tablet Take 1 tablet by mouth 3 times daily 0 05/06/2022 Active Active Problems Problem Noted Date Diagnosed Date Morbid obesity 06/05/2022 Social History Tobacco Use Types Packs/Day Years Used Date Smoking Tobacco: Former Cigarettes Smokeless Tobacco: Never Tobacco Cessation:Counseling Given: Not Answered Adolescent Education Answer Date Record ed Getting School Help Needed Not on file 01/17 Sex and Gender Information Value Date Recorded Sex Assigned at Not on file Gender Identity Not on file Sexual Orientation Not on file Last Filed Vital Signs Vital Sign Reading Time Taken Comments Blood Pressure 106/65 07/24/2022 10:30 AM CDT Pulse 73 07/24/2022 10:30 AM CDT Temperature - - Respiratory Rate - - Oxygen Saturation 99% 07/24/2022 10:30 AM CDT Inhaled Oxygen Concentration - - Weight 124.7 kg (275 lb) 06/05/2022 4:01 PM OPTICAL MANAGER Height 165.1 cm (5' 5) 06/05/2022 4:01 PM OPTICAL MANAGER Body Mass Index 45.76 06/05/2022 4:01 PM OPTICAL MANAGER Plan of Treatment Health Maintenance Due Date Last Done Comments ADVANCE CARE PLANNING 1980 ANNUAL REVIEW OF HM ORDERS 1980 HEPATITIS B IMMUNIZATION (1 of 3 - 3-dose series) 1980 YEARLY PREVENTIVE VISIT 1980 COVID-19 Vaccine (#1) 04/28/1982 Pneumococcal Vaccine: Pediatrics (0 to 5 Years) and At-Risk Patients (6 to 64 Years) (1 of 2 - PCV) 10/27/1987 HEPATITIS A IMMUNIZATION (1 of 2 - Risk 2-dose series) 2000 PAP 2002 DTAP/TDAP/TD IMMUNIZATION (1 - Tdap) 05/23/2010 05/22/2010 INFLUENZA VACCINE (#1) 2022 TSH W/FREE T4 REFLEX 04/25/2023 04/25/2022, 04/03/2022 PHQ-2 (once per calendar year) 2023 HEPATITIS C SCREENING Completed 04/03/2022 HIV SCREENING Completed 04/25/2022 HPV IMMUNIZATION Aged Out No longer e ligible based on patient's age to complete this topic IPV IMMUNIZATION Aged Out No longer e ligible based on patient's age to complete this topic MENINGITIS IMMUNIZATION Aged Out No l onger eligible based on patient's age to complete this topic RSV MONOCLONAL ANTIBODY Aged Out No l onger eligible based on patient's age to complete this topic Care Teams Boiler Engineer Relationship Specialty Start Date End Date Nelly Estevez MD [address] [address] PCP - General Family Medicine 04/25/22 Resident/Fellow, Physician 04/25/22
--- OUTSIDE RECORDS SUMMARY | 2023-05-22 06:53 | XMS_ITS | Encounter Summary ---
Author Name Unknown Organization [place] Address [address] [place] [address] Care Team Providers Care Porcelain Enameler Name Role Phone Resident/Fellow, Physician Unavailable Michelleva Nelly So MD Primary Care Provider [phone] [phone] Reason for Visit * Reason Comments Follow Up Video Visit Encounter Details Date Type Department Care Team ([facility] st Contact Info) Description 09/04/2022 2:00 PM CDT Virtual Visit [facility] [address] [place] [address] Pages, Yellow yellow pages Stephanie Lai MD [address] [place] [id number] Alcoholic cirrhosis of liver without ascites (H) (Primary Dx) Social History Tobacco Use Types Packs/Day Years [...] suspected to have Coronavirus/COVID-19? No / Unsure 08/28/2022 10:58 AM CDT documented as of this encounter Progress Notes * Stephanie Lai MD - 09/04/2022 2:00 PM CDT Images from the original note were not included. Virtual Visit Details Type of service: Video Visit Video Start Time: 2:20 PM Video End Time:2:40 Originating Location (pt. Location): Home Distant Location (provider location): On-site Platform used for Video Visit: [facility] [address] [place] [address] Outpatient Clinic Progress Note: Patient: Emma Flower : 1980 NAKIA: Jun 05, 2022 Assessment and Plan: Emma Flower is a 41 year old female who is here today for follow up of abnormal coagulation studies and normocytic anemia. Emma was first seen in consultation in April of 2022 for evaluation of normocytic anemia and abnormal coagulation studies. In regards to her normocytic anemia, it appears she is no longer anemic.There was some concern for hemolysis but repeat labs did not show any further evidence of hemolysiseven though CRIS was positive. Flow cytometry for PNH was negative. Peripheral blood smear did not show any evidence of hemolysis. Iron studies showed an elevated ferritin with a normal B12 level. FOBT was negative as well. Multiple myeloma labs were essentially negative but did reveal profound hypoalbuminemia which is suggestive of chronic liver disease. ?? In our initial consultation, she had abnormal coagulation values with elevated PT/INR and PTT. A mixing study showed that PT did not correct but PTT did correct which can also be supported by the fact that she has liver dysfunction.Factor level assays were performed which showed low levels in factor s II, V, VII, IX and X which are all vitamin K dependent factors suggesting a vitamin K deficiency contributing to abnormal coags. Factor 8 level was normal meaning her pathology was due to liver dysfunction and not DIC. Most recent coags show still elevated INR but PTT is normal. Given her diagnosis of autoimmune hepatitis, her lab values are due to synthetic liver dysfunction rather than a vitamin deficiency. ?? Her workup for APLS is essentially negative given she does not have any lupus anticoagulant, beta 2glycoprotein or cardiolipin antibodies. Considering that she does not have an underlying hematologic condition, she will not need to followup with us regularly and can be seen as needed. Recommendations: 1. Follow up with hepatology 2. RTC as needed Patient was seen and plan of care was discussed with attending physician Dr. Jasiel Kay. Stephanie Lai MD Heme/Onc/Transplant Fellow Pgr #[phone] Interval history: Today, Emma presents through video visit for her follow up. She states that she has been feeling well overall. She did note that she was diagnosed with autoimmune hepatitis recently and now has cirrhosis. She is following with cra officer. She states that she has been trying to eat more kale andspinach to help with her INR numbers but it has not been helping. Review of Systems: 14 point ROS negative other than the symptoms noted above in the HPI. Allergies: No Known Allergies Outpatient medications: Current Outpatient Medications: ??? levothyroxine (SYNTHROID/LEVOTHROID) 150 MCG tablet, Take 1 tablet by mouth daily at 2 pm, Disp: , Rfl: ??? pilocarpine (SALAGEN) 5 MG tablet, Take 1 tablet by mouth 3 times daily, Disp: , Rfl: Physical examination: Vitals were not obtained due to virtual visit A comprehensive physical examination is deferred due to tele visit. GENERAL: Healthy, alert and no distress EYES: Eyes grossly normal to inspection. No discharge or erythema, or obvious scleral/conjunctival abnormalities. RESP: No audible wheeze, cough, or visible cyanosis. No visible retractions or increased work of breathing. SKIN: Visible skin clear. No significant rash, abnormal pigmentation or lesions. NEURO: Cranial nerves grossly intact. Mentation and speech appropriate for age. PSYCH: Mentation appears normal, affect normal/bright, judgement and insight intact, normal speech and appearance well-groomed. Labs: [facility] Lab Test 08/28/22 1059 05/20/22 1240 NA 138 138 POTASSIUM 4.0 3.5 CHLORIDE 107 106 CO2 23 21* ANIONGAP 8 11 BUN 3.7* 3.0* CR 0.62 0.66 GFRESTIMATED >90 >90 EVANGELINA 8.2* 8.2* PROTTOTAL 8.3 9.0* ALBUMIN 2.7* 2.7* BILITOTAL 2.2* 2.0* ALKPHOS 114* 101 AST 74* 102* ALT 23 25 LDH -- 171 Recent Labs Lab Test 08/28/22 1059 05/20/22 1240 GLC 94 87 CBC Recent Labs Lab Test 08/28/22 1059 07/24/22 0750 05/20/22 1240 WBC 3.5* 3.9* 2.8* RBC 3.13* 3.24* 3.37* HGB 10.5* 11.0* 12.0 HCT 29.9* 31.7* 33.8* MCV 96 98 100 MCH 33.5* 34.0* 35.6* MCHC 35.1 34.7 35.5 RDW 16.4* 16.2* 16.3* PLT 78* 120* 145* COAGS Recent Labs Lab Test 08/28/22 1059 07/24/22 0750 06/09/22 1004 05/20/22 1240 INR 1.76* 1.65* 1.58* 1.92* 2.04* PTT 38 -- 37 42* Protein Electrophoresis, Serum Order: [id number] - Part of Panel Order [id number] Status: Final result ?? Visible to patient: Yes (seen) ?? Dx: Normocytic anemia ?? 0 Result Notes Component Ref Range & Units 2 wk ago Albumin 3.7 - 5.1 g/dL 2.8??Low?? Alpha 1 0.2 - 0.4 g/dL 0.2 Alpha 2 0.5 - 0.9 g/dL 0.4??Low?? Beta Globulin 0.6 - 1.0 g/dL 0.8 Gamma Globulin 0.7 - 1.6 g/dL 4.7??High?? Monoclonal Peak <=0.0 g/dL 0.0 ELP Interpretation Significant hypoalbuminemia with a polyclonal increase in the gamma fraction andbeta-gamma bridging is suggestive of chronic hepatic disease. No obvious monoclonal proteins seen. Slightly decreased alpha 2 globulin fraction. Pathologic significance requires clinical correlation.Kailey Maria M.D., Ph.D., Pathologist ([phone]). Contains abnormal data??[place] and lambda light chain Order: [id number] Status: Final result ?? Visible to patient: Yes (seen) ?? Dx: Normocytic anemia ?? 0 Result Notes Component Ref Range & Units 2 wk ago [place] Free Light Chains 0.33 - 1.94 mg/dL 15.09??High?? Lambda Free Light Chains 0.57 - 2.63 mg/dL 10.64??High?? [place] /Lambda Ratio 0.26 - 1.65 1.42 Resulting Agency SCORE Pathology: Bld morphology pathology review: [id number] Order: [id number] - Part of Panel Order [id number] Collected 05/20/2022 12:40 PM ?? Status: Final result ?? Visible to patient: Yes (seen) ?? Dx: Normocytic anemia ?? 0 Result Notes Component Final Diagnosis A. Peripheral blood smear for morphology: - Mild leukopenia with absolute neutropenia. - Borderline thrombocytopenia. at ??4:24 PM Comment The patient has a positive CRIS and elevated D-dimer without clear evidence of a hemolytic process and no evidence of anemia. A workup for PNH is negative. Further evaluation is required to determine if the neutropenia and thrombocytopenia is related to infection, medications, toxins (i.e. alcohol) or autoimmune disease. Clinical Information 41 year old female. Peripheral Smear PERIPHERAL BLOOD DIFFERENTIAL: The automated differential associated with the CBC for this case was imported from [employer] and was confirmed accurate with a 200 cell count manual differential review of the smear prepared from a blood sample collected 05/20/2022. PERIPHERAL BLOOD MORPHOLOGY: ERYTHROCYTES: The red cells are normocytic, normochromic and normal in number for the patient's ageand gender. Moderately increased rouleaux formation is present. No significant anisopoikilocytosis is seen. No features of hemolysis or increased polychromasia are identified. No parasites are identified. LEUKOCYTES: The leukocytes are morphologically normal mildly decreased in number with an absolute neutropenia. No immature precursors or evidence of neutrophilic dysplasia is seen. No atypical lymphoid cells are seen. No parasites or parasitic inclusions are seen. PLATELETS: The platelets are morphologically normal and borderline decreased in number. No appreciable platelet aggregates, platelet clumping or platelet- leukocyte satellitism is seen. Associated attestation - Jasiel Kay MD - 09/05/2022 5:25 PM CDT ATTENDING CLINIC NOTE 09/04/2022 I was there for the critical part of the history and physical. I discussed the patient with Dr. Lai, and her not reflects our joint assessment and plan. Comments: Her hematologic abnormalities are due to her liver disease. There is no further recs from our standpoint. Jasiel Kay MD, MSc cheesemaking laborer Corporate Real Estate Manager of Physician and Faculty Well-Being Division of Hematology, Oncology and Transplantation Faculty, [facility] [address] [place] [id number] documented in this encounter Nursing Notes * Subhash Garay - 09/04/2022 2:00 PM CDT Is the patient currently in the state of [place]? YES Visit mode:VIDEO If the visit is dropped, the patient can be reconnected by: VIDEO VISIT: Text to cell phone: [phone] Will anyone else be joining the visit? NO How would you like to obtain your AVS? MyChart Are changes needed to the allergy or medication list? NO Reason for visit: Follow Up and Video Visit Patient declined individual allergy and medication review by application support technician because patient denies any changes since echeck-in completion and states all information entered during echeck-in remains accurate. Tanisha Cullen VF documented in this encounter Plan of Treatment Not on file documented as of this encounter Visit Diagnoses Diagnosis Alcoholic cirrhosis of liver without ascites (H)- Primary Alcoholic cirrhosis of liver documented in this encounter Care Teams Porcelain Enameler Relationship Specialty Start Date End Date Nelly Estevez MD [address] [address] PCP - General Family Medicine 04/25/22 Resident/Fellow, Physician 04/25/22 documented as of this encounter
--- OUTSIDE RECORDS SUMMARY | 2023-05-22 06:53 | XMS_ITS | Encounter Summary ---
Author Name Unknown Organization [facility] Address [facility] [place] [address] Care Team Providers Care Roadway Engineer Name Role Phone Resident/Fellow, Physician Unavailable Unava Nelly So MD Primary Care Provider [phone] Encounter Details Date Type Department Care Team (Latest Contact Info) Description 08/28/2022 Travel Social History Tobacco Use Types Packs/Day Years [...] AM CDT documented as of this encounter Plan of Treatment Not on file documented as of this encounter Visit Diagnoses Not on filedocumented in this encounter Care Teams Roadway Engineer Relationship Specialty Start Date End Date Nelly Estevez MD [address] [address] PCP - General Family Medicine 04/25/22 Resident/Fellow, Physician 04/25/22 documented as of this encounter
--- OUTSIDE RECORDS SUMMARY | 2023-05-22 06:53 | XMS_ITS | Encounter Summary ---
Author Name Unknown Organization [place] Address [facility] [place] [address] Care Team Providers Care Gasoline Attendant Name Role Phone Resident/Fellow, Physician Unavailable Unava Nelly So MD Primary Care Provider [phone] Encounter Details Date Type Department Care Team (Latest Contact Info) Description 07/24/2022 Travel Social History Tobacco Use Types Packs/Day [...] on filedocumented in this encounter Care Teams Gasoline Attendant Relationship Specialty Start Date End Date Nelly Estevez MD [address] [address] PCP - General Family Medicine 04/25/22 Resident/Fellow, Physician 04/25/22 documented as of this encounter
--- OUTSIDE RECORDS SUMMARY | 2023-05-22 06:53 | XMS_ITS | Referral Summary ---
Author Name Unknown Organization [facility] Address [facility] [place] [address] Care Team Providers Care Contract Runner Name Role Phone Resident/Fellow, Physician Unavailable Michelleva Nelly So MD Primary Care Provider [phone] Allergies No known active allergies Medications Medication [...] 124.7 kg (275 lb) 06/05/2022 4:01 PM FISH WORM GROWER Height 165.1 cm (5' 5) 06/05/2022 4:01 PM FISH WORM GROWER Body Mass Index 45.76 06/05/2022 4:01 PM FISH WORM GROWER Plan of Treatment Not on file Care Teams Contract Runner Relationship Specialty Start Date End Date Nelly Estevez MD [address] [address] PCP - General Family Medicine 04/25/22 Resident/Fellow, Physician 04/25/22
--- OUTSIDE RECORDS SUMMARY | 2023-05-22 06:53 | XMS_ITS | Encounter Summary ---
Author Name Unknown Organization [facility] Address [address] [place] [address] Care Team Providers Care Estimator Lumber Name Role Phone Resident/Fellow, Physician Unavailable Michelleva Nelly So MD Primary Care Provider [phone] Encounter Details Date Type Department Care Team (Late st Contact Info) Description 08/28/2022 11:00 AM CDT [facility] [address] [place] [address] Normocytic anemia Social History Tobacco Use Types Packs/Day Years [...] Procedure Name Priority Date/Time Associated Diagnosis Comments CBC WITH PLATELETS AND DIFFERENTIAL Routine 08/28/2022 10:59 AM CDT Normocytic anemia CBC WITH PLATELETS & DIFFERENTIAL Routine 08/28/2022 10:59 AM CDT Normocytic anemia INR Routine 08/28/2022 10:59 AM CDT Normocytic anemia PARTIAL THROMBOPLASTIN TIME Routine 08/28/2022 10:59 AM CDT Normocytic anemia IRON AND IRON BINDING CAPACITY Routine 08/28/2022 10:59 AM CDT Normocytic anemia HAPTOGLOBIN Routine 08/28/2022 10:59 AM CDT Normocytic anemia FIBRINOGEN ACTIVITY Routine 08/28/2022 1 0:59 AM CDT Normocytic anemia FERRITIN Routine 08/28/2022 10:59 AM CDT Normocytic anemia COMPREHENSIVE METABOLIC PANEL Routine 08/28/2022 10:59 AM CDT Normocytic anemia documented in this encounter Results * (ABNORMAL) CBC with platelets and differential (08/28/2022 10:59 AM CDT) WBC Count 3.5(L) 4.0 - 11.0 10e3/uL 08/28/2022 4:53 PM CDT [facility] Comment:This is a corrected result. Previous result was 3.3 10e3/uL on 08/28/2022 at 11:36 AM CDT RBC Count 3.13(L) 3.80 - 5.20 10e6/uL 08/28/2022 4:53 PM CDT [facility] Comment:This is a corrected result. Previous result was 3.11 10e6/uL on 08/28/2022 at 11:36 AM CDT Hemoglobin 10.5(L) 11.7 - 15.7 g/dL 08/28/2022 4:53 PM CDT [facility] Comment:This is a corrected result. Previous result was 10.6 g/dL on 08/28/2022 at 11:36 AM CDT Hematocrit 29.9(L) 35.0 - 47.0 % 08/28/2022 4:53 PM CDT [facility] Comment:This is a corrected result. Previous result was 29.1 % on 08/28/2022 at 11:36 AM CDT MCV 96 78 - 100 fL 08/28/2022 4:53 PM CDT [facility] Comment:This is a corrected result. Previous result was 94 fL on 08/28/2022 at 11:36 AM CDT MCH 33.5(H) 26.5 - 33.0 pg 08/28/2022 4:53 PM CDT [facility] Comment:This is a corrected result. Previous result was 34.1 pg on 08/28/2022 at 11:36 AM CDT MCHC 35.1 31.5 - 36.5 g/dL 08/28/2022 4:53 PM CDT [facility] Comment:This is a corrected result. Previous result was 36.4 g/dL on 08/28/2022 at 11:36 AM CDT RDW 16.4(H) 10.0 - 15.0 % 08/28/2022 4:53 PM CDT [facility] Comment:This is a corrected result. Previous result was 16.2 % on 08/28/2022 at 11:36 AM CDT Platelet Count 78(L) 150 - 450 10e3/uL 08/28/2022 4:53 PM CDT [facility] Comment:This is a corrected result. Previous result was 90 10e3/uL on 08/28/2022 at 11:36 AM CDT % Neutrophils 48 % 08/28/2022 4:53 PM CDT [facility] Comment:This is a corrected result. Previous result was 46 % on 08/28/2022 at 11:36 AM CDT % Lymphocytes 39 % 08/28/2022 4:53 PM CDT [facility] Comment:This is a corrected result. Previous result was 40 % on 08/28/2022 at 11:36 AM CDT % Monocytes 10 % 08/28/2022 4:53 PM CDT [facility] Comment:This is a corrected result. Previous result was 11 % on 08/28/2022 at 11:36 AM CDT % Eosinophils 3 % 08/28/2022 4:53 PM CDT [facility] % Basophils 0 % 08/28/2022 4:53 PM CDT [facility] % Immature Granulocytes 0 % 08/28/2022 4:53 PM CDT [facility] NRBCs per 100 WBC 0 <1 /100 023 4:53 PM CDT [facility] Absolute Neutrophils 1.7 1.6 - 8.3 10e3/uL 08/28/2022 4:53 PM CDT [facility] Comment:This is a corrected result. Previous result was 1.5 10e3/uL on 08/28/2022 at 11:36 AM CDT Absolute Lymphocytes 1.4 0.8 - 5.3 10e3/uL 08/28/2022 4:53 PM CDT [facility] Comment:This is a corrected result. Previous result was 1.3 10e3/uL on 08/28/2022 at 11:36 AM CDT Absolute Monocytes 0.4 0.0 - 1.3 10e3/uL 08/28/2022 4:53 PM CDT [facility] Absolute Eosinophils 0.1 0.0 - 0.7 10e3/uL 08/28/2022 4:53 PM CDT [facility] Absolute Basophils 0.0 0.0 - 0.2 10e3/uL 08/28/2022 4:53 PM CDT [facility] Absolute Immature Granulocytes 0.0 <=0.4 10e3/uL 08/28/2022 4:53 PM CDT [facility] Absolute NRBCs 0.0 10e3/uL 08/28/2022 4:53 PM CDT [facility] Blood BLOOD SPECIMEN / Unknown Venipuncture / Unknown 08/28/2022 10:59 AM CDT 08/28/2022 11:00 AM CDT Stephanie Lai MD LAB - BLOOD [facility] [address] Lab (1st floor, no room number) [place] [address], [facility] [phone] * (ABNORMAL) Ferritin (08/28/2022 10:59 AM CDT) [facility] Ferritin 399(H) 6 - 175 ng/mL 08/28/2022 8:21 PM CDT [facility] Blood BLOOD SPECIMEN / Unknown Venipuncture / Unknown 08/28/2022 10:59 AM CDT 08/28/2022 11:00 AM CDT Stephanie Lai MD LAB - BLOOD ORDERA BLES [facility] [address] [facility], [address] [place] [address], [facility] [phone] * (ABNORMAL) Iron & Iron Binding Capacity (08/28/2022 10:59 AM CDT) Iron 74 37 - 145 ug/dL 08/28/2022 8:21 PM CDT [facility] Iron Binding Capacity 121(L) 240 - 430 ug/dL 08/28/2022 8:21 PM CDT [facility] Iron Sat Index 61(H) 15 - 46 % 08/28/2022 8:21 PM CDT [facility] Blood BLOOD SPECIMEN / Unknown Venipuncture / Unknown 08/28/2022 10:59 AM CDT 08/28/2022 11:00 AM CDT Stephanie Lai MD LAB - BLOOD ORDERA BLES [facility] [address] [facility], [address] [place] [address], [facility] [phone] * Partial thromboplastin time (08/28/2022 10:59 AM CDT) aPTT 38 22 - 38 Seconds 08/28/2022 6:25 PM CDT [facility] Blood BLOOD SPECIMEN / Unknown Venipuncture / Unknown 08/28/2022 10:59 AM CDT 08/28/2022 11:00 AM CDT Stephanie Lai MD LAB - BLOOD ORDERA BLES [facility] [address] Lab (no room number, 1st floor of clinic) [place] [address], [place] [phone] * (ABNORMAL) INR (08/28/2022 10:59 AM CDT) INR 1.76(H) 0.85 - 1.15 08/28/2022 6:25 PM CDT [facility] Blood BLOOD SPECIMEN / Unknown Venipuncture / Unknown 08/28/2022 10:59 AM CDT 08/28/2022 11:00 AM CDT Stephanie Lai MD LAB - BLOOD ORDERA BLES [facility] [address] Lab (no room number, 1st floor of clinic) [place] [address], [facility] [phone] * (ABNORMAL) Haptoglobin (08/28/2022 10:59 AM CDT) Haptoglobin 3(L) 32 - 197 mg/dL 08/29/2022 10:52 AM CDT [facility] CORE/PROT/ENDO Blood BLOOD SPECIMEN / Unknown Venipuncture / Unknown 08/28/2022 10:59 AM CDT 08/28/2022 11:00 AM CDT Stephanie Lai MD LAB - BLOOD ORDERA BLES SPECIALTY CORE/PROT/ENDO Specialty Core/Prot/Endo [address] [facility], Room [address] [phone] * (ABNORMAL) Fibrinogen activity (08/28/2022 10:59 AM CDT) Fibrinogen Activity 107(L) 170 - 490 mg/dL 08/28/2022 8:41 PM CDT [facility] Blood BLOOD SPECIMEN / Unknown Venipuncture / Unknown 08/28/2022 10:59 AM CDT 08/28/2022 11:00 AM CDT Stephanie Lai MD LAB - BLOOD ORDERA BLES [facility] [place] [facility] [address] [facility] [address], [address] [id number], [facility] [phone] * (ABNORMAL) Comprehensive metabolic panel (08/28/2022 10:59 AM CDT) Sodium 138 136 - 145 mmol/L 08/28/2022 8:21 PM CDT [facility] Potassium 4.0 3.4 - 5.3 mmol/L 08/28/2022 8:21 PM CDT [facility] Chloride 107 98 - 107 mmol/L 08/28/2022 8:21 PM CDT [facility] Carbon Dioxide (CO2) 23 22 - 29 mmol/L 08/28/2022 8:21 PM CDT [facility] Anion Gap 8 7 - 15 mmol/L 08/28/2022 8:21 PM CDT [facility] Urea Nitrogen 3.7(L) 6.0 - 20.0 mg/dL 08/28/2022 8:21 PM CDT [facility] Creatinine 0.62 0.51 - 0.95 mg/dL 08/28/2022 8:21 PM CDT [facility] Calcium 8.2(L) 8.6 - 10.0 mg/dL 08/28/2022 8:21 PM CDT [facility] Glucose 94 70 - 99 mg/dL 08/28/2022 8:21 PM CDT [facility] Alkaline Phosphatase 114(H) 35 - 104 U/L 08/28/2022 8:21 PM CDT [facility] AST 74(H) 10 - 35 U/L 08/28/2022 8:21 PM CDT [facility] ALT 23 10 - 35 U/L 08/28/2022 8:21 PM CDT [facility] Protein Total 8.3 6.4 - 8.3 g/dL 08/28/2022 8:21 PM CDT [facility] Albumin 2.7(L) 3.5 - 5.2 g/dL 08/28/2022 8:21 PM CDT [facility] Bilirubin Total 2.2(H) <=1.2 mg/dL 08/28/2022 8:21 PM CDT [facility] GFR Estimate >90 >60 mL/min/1.7 3m2 08/28/2022 8:21 PM CDT [facility] Comment:eGFR calculated usin 2020 CKD-EPI equation. Blood BLOOD SPECIMEN / Unknown Venipuncture / Unknown 08/28/2022 10:59 AM CDT 08/28/2022 11:00 AM CDT Stephanie Lai MD LAB - BLOOD [facility]A [facility] [place] [facility] [address] [facility], [address] [place] [address] [phone] documented in this encounter Visit Diagnoses Diagnosis Normocytic anemia Anemia, unspecified documented in this encounter Care Teams Estimator Lumber Relationship Specialty Start Date End Date Nelly Estevez MD [address] [address] PCP - General Family Medicine 04/25/22 Resident/Fellow, Physician 04/25/22 documented as of this encounter
--- OUTSIDE RECORDS SUMMARY | 2023-05-22 06:54 | XMS_ITS | Encounter Summary ---
Author Name Unknown Organization [facility] Address [address] [place] [address] Care Team Providers Care Chief [employer] Name Role Phone Resident/Fellow, Physician Unavailable Michelleva Nelly So MD Primary Care Provider [phone] Encounter Details Date Type Department Care Team (Late st Contact Info) Description 05/20/2022 12:30 PM GIFTED TEACHER [facility] [address] [place] [address] Normocytic anemia Social History Tobacco [...] suspected to have Coronavirus/COVID-19? No / Unsure 06/02/2022 1:22 PM GIFTED TEACHER documented as of this encounter Miscellaneous Notes * Addendum Note - Candy Cleveland - 05/20/2022 12:30 PM CSTAddended by: CANDY CLEVELAND on: 05/20/2022 07:17 PM Modules accepted: Orders ED TEACHER * Addendum Note - Papi Velez - 05/20/2022 12:30 PM CSTAddended by: PAPI VELEZ on: 06/02/2022 01:31 PM Modules accepted: Orders ED TEACHER documented in this encounter Plan of Treatment Not on file documented as of this encounter Procedures Procedure Name Priority Date/Time Associated Diagnosis Comments LABORATORY MISCELLANEOUS ORDER Routine 05/20/2022 7:17 PM GIFTED TEACHER Normocytic anemia MORPHOLOGY TRACKING Routine 05/20/2022 1 2:40 PM GIFTED TEACHER Normocytic anemia PROTEIN ELECTROPHORESIS, SERUM Routine 05/20/2022 12:40 PM GIFTED TEACHER Normocytic anemia TOTAL PROTEIN, SERUM FOR ELP Routine 05/20/2022 12:40 PM GIFTED TEACHER Normocytic anemia BLOOD MORPHOLOGY PATHOLOGIST REVIEW Routine 05/20/2022 12:40 PM GIFTED TEACHER Normocytic anemia CBC WITH PLATELETS AND DIFFERENTIAL Routine 05/20/2022 12:40 PM GIFTED TEACHER Normocytic anemia LACTATE DEHYDROGENASE Routine 05/20/2022 12:40 PM GIFTED TEACHER Normocytic anemia PROTEIN IMMUNOFIXATION SERUM Routine 05/20/2022 12:40 PM GIFTED TEACHER Normocytic anemia KAPPA AND LAMBDA LIGHT CHAIN Routine 05/20/2022 12:40 PM GIFTED TEACHER Normocytic anemia RETICULOCYTE COUNT Routine 05/20/2022 12 :40 PM GIFTED TEACHER Normocytic anemia PTT MIXING STUDIES Routine 05/20/2022 12 :40 PM GIFTED TEACHER Normocytic anemia PT MIXING STUDIES Routine 05/20/2022 12: 40 PM GIFTED TEACHER Normocytic anemia INR Routine 05/20/2022 12:40 PM GIFTED TEACHER Normocytic anemia PARTIAL THROMBOPLASTIN TIME Routine 05/20/2022 12:40 PM GIFTED TEACHER Normocytic anemia IRON AND IRON BINDING CAPACITY Routine 05/20/2022 12:40 PM GIFTED TEACHER Normocytic anemia HAPTOGLOBIN Routine 05/20/2022 12:40 PM GIFTED TEACHER Normocytic anemia FIBRINOGEN ACTIVITY Routine 05/20/2022 1 2:40 PM GIFTED TEACHER Normocytic anemia FERRITIN Routine 05/20/2022 12:40 PM GIFTED TEACHER Normocytic anemia PROTEIN ELECTROPHORESIS Routine 05/20/19 12:40 PM GIFTED TEACHER Normocytic anemia DIRECT ANTIGLOBULIN TEST, ADULT Routine 05/20/2022 12:40 PM GIFTED TEACHER Normocytic anemia DIRECT ANTIGLOBULIN TEST Routine 05/20/2022 12:40 PM GIFTED TEACHER Normocytic anemia D DIMER QUANTITATIVE Routine 05/20/2022 12:40 PM GIFTED TEACHER Normocytic anemia COMPREHENSIVE METABOLIC PANEL Routine 05/20/2022 12:40 PM GIFTED TEACHER Normocytic anemia BLOOD MORPHOLOGY PATHOLOGIST REVIEW Routine 05/20/2022 12:40 PM GIFTED TEACHER Normocytic anemia VITAMIN B12 Routine 05/20/2022 12:40 PM GIFTED TEACHER Normocytic anemia documented in this encounter Results * Occult blood stool (06/02/2022 1:32 PM GIFTED TEACHER) Occult Blood Negative Negative LEIGHA 06/02/2022 1:35 PM GIFTED TEACHER LABORATORY Stool RECTAL CONTENTS / Unknown Non-blood Collection / Unknown 06/02/2022 1:32 PM GIFTED TEACHER 06/02/2022 1:32 PM GIFTED TEACHER Stephanie Lai MD LAB - STOOLS ORDER NING LABORATORY [facility] [address] [facility] Lab (no room number, 1st floor of clinic) [place] [address], [facility] [phone] * Other Laboratory; [facility]; refrence lab workup (Laboratory Miscellaneous Order) (05/20/2022 7:17 PM GIFTED TEACHER) Performing Laboratory [facility] Blood [facility] 05/27/2022 8:11 AM GIFTED TEACHER RH BLOOD BANK Test Name Reference Lab Workup [facility] 05/27/2022 8:11 AM GIFTED TEACHER RH BLOOD BANK See Scanned Result see scanned result [facility] 05/27/2022 8:11 AM GIFTED TEACHER RH BLOOD BANK Blood BLOOD SPECIMEN / Unknown Venipuncture / Unknown 05/20/2022 7:17 PM GIFTED TEACHER 05/20/2022 7:17 PM GIFTED TEACHER Stephanie Lai MD LAB - BLOOD ORDERA BLES RH BLOOD BANK [address] [place] [address], [facility] * (ABNORMAL) Protein Electrophoresis, Serum (05/20/2022 12:40 PM GIFTED TEACHER) Albumin 2.8(L) 3.7 - 5.1 g/dL 05/21/2022 1:22 PM GIFTED TEACHER SPECIALTY CORE/PROT/E NDO Alpha 1 0.2 0.2 - 0.4 g/dL 05/21/2022 1:22 PM GIFTED TEACHER SPECIALTY CORE/PROT/E NDO Alpha 2 0.4(L) 0.5 - 0.9 g/dL 05/21/2022 1:22 PM GIFTED TEACHER UM SPECIALTY CORE/PROT/E NDO Beta Globulin 0.8 0.6 - 1.0 g/dL 05/21/2022 1:22 PM GIFTED TEACHER SPECIALTY CORE/PROT/E NDO Gamma Globulin 4.7(H) 0.7 - 1.6 g/dL 05/21/2022 1:22 PM GIFTED TEACHER SPECIALTY CORE/PROT/E NDO Monoclonal Peak 0.0 <=0.0 g/dL 05/21/2022 1:22 PM GIFTED TEACHER SPECIALTY CORE/PROT/E NDO ELP Interpretation Significant hypoalbuminemia with a polyclonal increase in the gamma fraction and beta-gamma bridging is suggestive of chronic hepatic disease. No obvious monoclonal proteins seen. Slightly decreased alpha 2 globulin fraction. Pathologic significance requires clinical correlation. Kailey Maria M.D., Ph.D., Pathologist ([phone]). 05/21/2022 1:22 PM GIFTED TEACHER SPECIALTY CORE/PROT/E NDO Blood STRUCTURE OF RIGHT UPPER LIMB / Unknown Venipuncture / Unknown 05/20/2022 12:40 PM GIFTED TEACHER 05/20/2022 12:40 PM GIFTED TEACHER Stephanie Lai MD LAB - BLOOD ORDERA BLES SPECIALTY CORE/PROT/ENDO Specialty Core/Prot/Endo [address] [facility] [address] Building, Room [address] [address], [facility] [phone] * (ABNORMAL) Total Protein, Serum for ELP (05/20/2022 12:40 PM GIFTED TEACHER) Total Protein Serum for ELP 8.9(H) 6.4 - 8.3 g/dL 05/20/2022 5:18 PM GIFTED TEACHER U LABORATORY Blood STRUCTURE OF RIGHT UPPER LIMB / Unknown Venipuncture / Unknown 05/20/2022 12:40 PM GIFTED TEACHER 05/20/2022 12:40 PM GIFTED TEACHER Stephanie Lai MD LAB - BLOOD ORDERA BLES LABORATORY [facility] [address] [facility], Room [address] [address], [facility] [phone] * Direct antiglobulin test, adult (05/20/2022 12:40 PM GIFTED TEACHER) CRIS Anti-IgG,-C3d Positive 2+ 05/19/2022 6:00 PM GIFTED TEACHER RH BLOOD BANK SPECIMEN EXPIRATION DATE [id number] 05/19/2022 6:00 PM GIFTED TEACHER RH BLOOD BANK Blood STRUCTURE OF RIGHT UPPER LIMB / Unknown Venipuncture / Unknown 05/20/2022 12:40 PM GIFTED TEACHER 05/20/2022 12:40 PM GIFTED TEACHER Stephanie Lai MD LAB - BLOOD BANK T EST ORDER Performing Organization Address [facility]/ZIP Co de Phone Number BLOOD BANK [address] [place] [address] * Morphology Tracking (05/20/2022 12:40 PM GIFTED TEACHER) Blood STRUCTURE OF RIGHT UPPER LIMB / Unknown Venipuncture / Unknown 05/20/2022 12:40 PM GIFTED TEACHER 05/20/2022 12:40 PM GIFTED TEACHER Stephanie Lai MD LAB - BLOOD ORDERA BLES Performing Organization Address [facility]/ZIP Co de Phone Number [facility] [address] Lab (1st floor, no room number) [place] [address], [facility] [phone] * Reticulocyte count (05/20/2022 12:40 PM GIFTED TEACHER) % Reticulocyte 1.5 0.5 - 2.0 % 05/20/2022 4:44 PM GIFTED TEACHER RH LABORATORY Absolute Reticulocyte 0.050 0.025 - 0.095 10e6/uL 05/20/2022 4:44 PM GIFTED TEACHER [facility] LABORATORY Blood STRUCTURE OF RIGHT UPPER LIMB / Unknown Venipuncture / Unknown 05/20/2022 12:40 PM GIFTED TEACHER 05/20/2022 12:40 PM GIFTED TEACHER Stephanie Lai MD LAB - BLOOD ORDERA BLES Performing Organization Address [facility]/ZIP Co de Phone Number [facility] [address] Lab (1st floor, no room number) [place] [address], [facility] [phone] * (ABNORMAL) CBC with platelets and differential (05/20/2022 12:40 PM GIFTED TEACHER) WBC Count 2.8(L) 4.0 - 11.0 10e3/uL 05/20/2022 1:47 PM GIFTED TEACHER [facility] LABORATORY RBC Count 3.37(L) 3.80 - 5.20 10e6/uL 05/20/2022 1:47 PM GIFTED TEACHER [facility] LAB[facility]ATORY Hemoglobin 12.0 11.7 - 15.7 g/dL 05/20/2022 1:47 PM GIFTED TEACHER [facility] LABORATORY Hematocrit 33.8(L) 35.0 - 47.0 % 05/20/2022 1:47 PM GIFTED TEACHER [facility] LABORATORY MCV 100 78 - 100 fL 05/20/2022 1:47 PM GIFTED TEACHER [facility] LAB[facility]ORY MCH 35.6(H) 26.5 - 33.0 pg 05/20/2022 1:47 PM GIFTED TEACHER [facility] LAB[facility]ATORY MCHC 35.5 31.5 - 36.5 g/dL 05/20/2022 1:47 PM GIFTED TEACHER [facility] LAB[facility] RDW 16.3(H) 10.0 - 15.0 % 05/20/2022 1:47 PM GIFTED TEACHER [facility] LAB[facility] Platelet Count 145(L) 150 - 450 10e3/uL 05/20/2022 1:47 PM GIFTED TEACHER [facility] % Neutrophils 41 % 05/20/2022 1:47 PM GIFTED TEACHER [facility] % Lymphocytes 47 % 05/20/2022 1:47 PM GIFTED TEACHER [facility] % Monocytes 9 % 05/20/2022 1:47 PM GIFTED TEACHER [facility] % Eosinophils 3 % 05/20/2022 1:47 PM GIFTED TEACHER [facility] % Basophils 0 % 05/20/2022 1:47 PM GIFTED TEACHER [facility] LAB[facility] Absolute Neutrophils 1.2(L) 1.6 - 8.3 10e3/uL 05/20/2022 1:47 PM GIFTED TEACHER [facility] LAB[facility] Absolute Lymphocytes 1.3 0.8 - 5.3 10e3/uL 05/20/2022 1:47 PM GIFTED TEACHER [facility] Absolute Monocytes 0.3 0.0 - 1.3 10e3/uL 05/20/2022 1:47 PM GIFTED TEACHER [facility] Absolute Eosinophils 0.1 0.0 - 0.7 10e3/uL 05/20/2022 1:47 PM GIFTED TEACHER [facility] Absolute Basophils 0.0 0.0 - 0.2 10e3/uL 05/20/2022 1:47 PM GIFTED TEACHER [facility] Blood STRUCTURE OF RIGHT UPPER LIMB / Unknown Venipuncture / Unknown 05/20/2022 12:40 PM GIFTED TEACHER 05/20/2022 12:40 PM GIFTED TEACHER Stephanie Lai MD LAB - BLOOD ORDERA BLES [facility] [address] [facility] (no room number, 1st floor of clinic) [place] [address], [facility] [phone] * Bld morphology pathology review (05/20/2022 12:40 PM GIFTED TEACHER) Final Diagnosis A. Peripheral blood smear for morphology: - Mild leukopenia with absolute neutropenia. - Borderline thrombocytopenia. 05/23/2022 4:24 PM [facility] Comment The patient has a positive CRIS and elevated D-dimer without clear evidence of a hemolytic process and no evidence of anemia. A workup for PNH is negative. Further evaluation is required to determine if the neutropenia and thrombocytopenia is related to infection, medications, toxins (i.e. alcohol) or autoimmune disease. 05/23/2022 4:24 PM [facility] Clinical Information 41 year old female. 05/23/2022 4:24 PM [facility] Peripheral Smear PERIPHERAL BLOOD DIFFERENTIAL: The automated differential associated with the CBC for this case was imported from [employer] and was confirmed accurate with a 200 cell count manual differential review of the smear prepared from a blood sample collected 05/20/2022. PERIPHERAL BLOOD MORPHOLOGY: ERYTHROCYTES: The red cells are normocytic, normochromic and normal in number for the patient's age and gender. Moderately increased rouleaux formation is present. [...] No appreciable platelet aggregates, platelet clumping or platelet-leukocyte satellitism is seen. 05/23/2022 4:24 PM [facility] Peripheral Hematologic Data Latest Reference Range & Units 05/20/22 12:40 WBC 4.0 - 11.0 10e3/uL 2.8 (L) Hemoglobin 11.7 - 15.7 g/dL 12.0 Hematocrit 35.0 - 47.0 % 33.8 (L) Platelet Count 150 - 450 10e3/uL 145 (L) RBC Count 3.80 - 5.20 10e6/uL 3.37 (L) MCV 78 - 100 fL 100 MCH 26.5 - 33.0 pg 35.6 (H) MCHC 31.5 - 36.5 g/dL 35.5 RDW 10.0 - 15.0 % 16.3 (H) % Neutrophils % 41 % Lymphocytes % 47 % Monocytes % 9 % Eosinophils % 3 % Basophils % 0 Absolute Basophils 0.0 - 0.2 10e3/uL 0.0 Absolute Eosinophils 0.0 - 0.7 10e3/uL 0.1 Absolute Lymphocytes 0.8 - 5.3 10e3/uL 1.3 Absolute Monocytes 0.0 - 1.3 10e3/uL 0.3 Absolute Neutrophils 1.6 - 8.3 10e3/uL 1.2 (L) % Retic 0.5 - 2.0 % 1.5 Absolute Retic 0.025 - 0.095 10e6/uL 0.050 (L): Data is abnormally low (H): Data is abnormally high 05/23/2022 4:24 PM [facility] Flow Cytometry Summary Flow Interpretation A. PNH, Peripheral Blood: - No immunophenotypic evidence of paroxysmal nocturnal hemoglobinuria (PNH) or PNH-type clone Flow Phenotypic Data The patient's erythrocytes have levels of CD59 in a normal pattern. The patient's monocytes have levels of CD14 and fluorescent aerolysin (FLAER) in a normal pattern. The patient's neutrophils have levels of CD24 and FLAER in a normal pattern. 05/23/2022 4:24 PM [facility] Additional Laboratory Data Latest Reference Range & Units 05/20/22 12:40 Ferritin 6 - 175 ng/mL 404 (H) Glucose 70 - 99 mg/dL 87 Iron 37 - 145 ug/dL 68 Iron Binding Capacity 240 - 430 ug/dL 146 (L) Iron Sat Index 15 - 46 % 47 (H) (H): Data is abnormally high (L): Data is abnormally low Latest Reference Range & Units 05/20/22 12:40 Urea Nitrogen 6.0 - 20.0 mg/dL 3.0 (L) Creatinine 0.51 - 0.95 mg/dL 0.66 GFR Estimate >60 mL/min/1.73m2 >90 (L): Data is abnormally low Albumin 3.7 - 5.1 g/dL 2.8 Low Alpha 1 0.2 - 0.4 g/dL 0.2 Alpha 2 0.5 - 0.9 g/dL 0.4 Low Beta Globulin 0.6 - 1.0 g/dL 0.8 Gamma Globulin 0.7 - 1.6 g/dL 4.7 High Monoclonal Peak <=0.0 g/dL 0.0 ELP Interpretation Significant hypoalbuminemia with a polyclonal increase in the gamma fraction and beta-gamma bridging is suggestive of chronic hepatic disease. No obvious monoclonal proteins seen. Slightly decreased alpha 2 globulin fraction. Pathologic significance requires clinical correlation. 05/20/22 12:40 CRIS Anti-IgG,-C3d Positive 2+ Latest Reference Range & Units 05/20/22 12:40 Bilirubin Total <=1.2 mg/dL 2.0 (H) (H): Data is abnormally high Latest Reference Range & Units 05/20/22 12:40 D-Dimer Quantitative 0.00 - 0.50 ug/mL FEU 2.22 (H) (H): Data is abnormally high Latest Reference Range & Units 05/20/22 12:40 Lactate Dehydrogenase 0 - 250 U/L 171 05/23/2022 4:24 PM [facility] Performing Labs The technical component of this testing was completed at [facility], [facility] and [facility] 05/23/2022 4:24 PM [facility] Blood BLOOD SPECIMEN / Unknown 05/20/2022 12:40 PM GIFTED TEACHER 05/21/2022 8:03 AM GIFTED TEACHER Comment:CBC with platelets d ifferential and Reticulocyte count should be ordered concurrently with the peripheral smear (all tests performed on the same tube of blood). The concurrent CBC with platelets differential and Reticulocyte count are incorporated into the final peripheral smear report and are necessary for interpretation. Stephanie [facility] Lab [address] 1[address] Floor, [address] [place] [address] * Protein Immunofixation Serum (05/20/2022 12:40 PM GIFTED TEACHER) Immunofixation ELP No monoclonal protein seen on immunofixation. Pathologic significance requires clinical correlation. Kailey Maria M.D., Ph.D., Pathologist ([phone]) 05/21/2022 1:17 PM GIFTED TEACHER [facility] SPECIALTY CORE/PROT/EN DO Blood STRUCTURE OF RIGHT UPPER LIMB / Unknown Venipuncture / Unknown 05/20/2022 12:40 PM GIFTED TEACHER 05/20/2022 12:40 PM GIFTED TEACHER Stephanie Lai MD LAB - BLOOD ORDERA BLES UM SPECIALTY CORE/PROT/ENDO UM Specialty Core/Prot/Endo [address] [facility] [address] [facility], Room [address] [address] [phone] * (ABNORMAL) [place] and lambda light chain (05/20/2022 12:40 PM GIFTED TEACHER) [place] Free Light Chains 15.09(H) 0.33 - 1.94 mg/dL 05/21/2022 10:37 AM GIFTED TEACHER UM SPECIALTY CORE/PROT/END O Lambda Free Light Chains 10.64(H) 0.57 - 2.63 mg/dL 05/21/2022 10:37 AM GIFTED TEACHER UM SPECIALTY CORE/PROT/END O [place] /Lambda Ratio 1.42 0.26 - 1.65 05/21/2022 10:37 AM GIFTED TEACHER UM SPECIALTY CORE/PROT/END O Blood STRUCTURE OF RIGHT UPPER LIMB / Unknown Venipuncture / Unknown 05/20/2022 12:40 PM GIFTED TEACHER 05/20/2022 12:40 PM GIFTED TEACHER Stephanie Lai MD LAB - BLOOD ORDERA BLES UM SPECIALTY CORE/PROT/ENDO UM Specialty Core/Prot/Endo [address] [facility] [address] Building, Room [address] [address] [phone] * Lactate Dehydrogenase (05/20/2022 12:40 PM GIFTED TEACHER) Lactate Dehydrogenase 171 0 - 250 U/L 05/20/2022 5:37 PM GIFTED TEACHER [facility] Blood STRUCTURE OF RIGHT UPPER LIMB / Unknown Venipuncture / Unknown 05/20/2022 12:40 PM GIFTED TEACHER 05/20/2022 12:40 PM GIFTED TEACHER Stephanie Lai MD LAB - BLOOD ORDERA BLES Performing Organization Address City/[facility]/ZIP Co de Phone Number U[facility] LABORATORY [facility] [address] [facility] [address] [facility], [address] [phone], [facility] [phone] * (ABNORMAL) PTT mixing studies (05/20/2022 12:40 PM GIFTED TEACHER) Pathologist [facility] PTT 48(H) 31 - 45 Seconds 05/21/2022 2:16 PM GIFTED TEACHER [facility] SPECIAL COAGULATION Comment:Performed on hepzyme d plasma. aPTT Mix 38 31 - 45 Seconds 05/21/2022 2:16 PM GIFTED TEACHER [facility]AGULATION Comment: Performed on hepzymed plasma. Mixing study shows correction of the PTT. However this does not rule out a lupus inhibitor. Recommend Lupus Battery. Blood STRUCTURE OF RIGHT UPPER LIMB / Unknown Venipuncture / Unknown 05/20/2022 12:40 PM GIFTED TEACHER 05/20/2022 12:40 PM GIFTED TEACHER Stephanie Lai MD LAB - BLOOD ORDERA BLES UM SPECIAL COAGULATION UM Special Coagulation [address] [facility] [address] [facility], Room [address] [address], [facility] [phone] * (ABNORMAL) PT mixing studies (05/20/2022 12:40 PM GIFTED TEACHER) INR 1.92(H) 0.85 - 1.15 05/20/2022 5:34 PM GIFTED TEACHER [facility] PT 21.1 Seconds 05/20/2022 5:34 PM GIFTED TEACHER [facility] INR Mix 1.28(H) 0.85 - 1.15 05/20/2022 5:34 PM GIFTED TEACHER [facility] Comment:The mixing study dem onstrates the INR is prolonged and DID NOT correct to the normal reference range when mixed with normal pooled plasma. This pattern can be seen in several conditions including anticoagulants (e.g.. heparin, direct thrombin inhibitors, anti-Xa inhibitors), dysfibrinogenemia, factor specific inhibitors, lupus anticoagulant, and other types of inhibitors, Recommend clinical correlation with medications and consider obtaining additional laboratory studies such as fibrinogen; factors 2, 5, 7, and 10 (factors II, V, VII, and X); lupus anticoagulant; and serum protein electrophoresis. PT Mix 15.4 Seconds 05/20/2022 5:34 PM GIFTED TEACHER [facility] Blood STRUCTURE OF RIGHT UPPER LIMB / Unknown Venipuncture / Unknown 05/20/2022 12:40 PM GIFTED TEACHER 05/20/2022 12:40 PM GIFTED TEACHER Stephanie Lai MD LAB - BLOOD ORDERA BLES Performing Organization Address City/[facility]/ZIP Co de Phone Number U LABORATORY [facility] [address] [facility], Room [address] [address], [facility] [phone] * (ABNORMAL) Fibrinogen activity (05/20/2022 12:40 PM GIFTED TEACHER) Fibrinogen Activity 108(L) 170 - 490 mg/dL 05/20/2022 5:38 PM GIFTED TEACHER [facility] Blood STRUCTURE OF RIGHT UPPER LIMB / Unknown Venipuncture / Unknown 05/20/2022 12:40 PM GIFTED TEACHER 05/20/2022 12:40 PM GIFTED TEACHER Stephanie Lai MD LAB - BLOOD ORDERA BLES [facility] [address] [facility], Room [address] [place] [address], [facility] [phone] * (ABNORMAL) Partial thromboplastin time (05/20/2022 12:40 PM GIFTED TEACHER) aPTT 42(H) 22 - 38 Seconds 05/20/2022 4:13 PM GIFTED TEACHER [facility] Blood STRUCTURE OF RIGHT UPPER LIMB / Unknown Venipuncture / Unknown 05/20/2022 12:40 PM GIFTED TEACHER 05/20/2022 12:40 PM GIFTED TEACHER Stephanie Lai MD LAB - BLOOD ORDERA BLES [facility] Lab [address] [place] [address] Lab (no room number, 1st floor of [facility]) [place] [address], [facility] [phone] * (ABNORMAL) INR (05/20/2022 12:40 PM GIFTED TEACHER) INR 2.04(H) 0.85 - 1.15 05/20/2022 4:11 PM GIFTED TEACHER [facility] Blood STRUCTURE OF RIGHT UPPER LIMB / Unknown Venipuncture / Unknown 05/20/2022 12:40 PM GIFTED TEACHER 05/20/2022 12:40 PM GIFTED TEACHER Stephanie Lai MD LAB - BLOOD ORDERA BLES Performing Organization Address City/[facility]/ZIP Co de Phone Number [facility] LAB[facility] Lab [address] [place] [address] Lab (no room number, 1st floor of clinic) [place] [address], [facility] [phone] * (ABNORMAL) D dimer quantitative (05/20/2022 12:40 PM GIFTED TEACHER) D-Dimer Quantitative 2.22(H) 0.00 - 0.50 ug/mL FEU 05/20/2022 4:15 PM GIFTED TEACHER [facility] Blood STRUCTURE OF RIGHT UPPER LIMB / Unknown Venipuncture / Unknown 05/20/2022 12:40 PM GIFTED TEACHER 05/20/2022 12:40 PM GIFTED TEACHER Narrative [facility] - 05/20/2022 4:15 PM GIFTED TEACHER This D-dimer assay is intended for use in conjunction with a clinical pretest probability assessment model to exclude pulmonary embolism (PE) and deep venous thrombosis (DVT) in outpatients suspected of PE or DVT. The cut-off value is 0.50 ug/mL FEU. Stephanie Lai MD LAB - BLOOD ORDERA BLES [facility] [address] Lab (no room number, 1st floor of clinic) [place] [address], [facility] [phone] * (ABNORMAL) Haptoglobin (05/20/2022 12:40 PM GIFTED TEACHER) Haptoglobin 7(L) 32 - 197 mg/dL 05/21/2022 10:37 AM GIFTED TEACHER SPECIALTY CORE/PROT/ENDO Blood STRUCTURE OF RIGHT UPPER LIMB / Unknown Venipuncture / Unknown 05/20/2022 12:40 PM GIFTED TEACHER 05/20/2022 12:40 PM GIFTED TEACHER Stephanie Lai MD LAB - BLOOD ORDERA BLES SPECIALTY CORE/PROT/ENDO Specialty Core/Prot/Endo [address] [facility], [address] [place] [address], [facility] [phone] * Vitamin B12 (05/20/2022 12:40 PM GIFTED TEACHER) Vitamin B12 884 232 - 1,245 pg/mL 05/20/2022 5:37 PM GIFTED TEACHER [facility] LAB[facility]ATORY Blood STRUCTURE OF RIGHT UPPER LIMB / Unknown Venipuncture / Unknown 05/20/2022 12:40 PM GIFTED TEACHER 05/20/2022 12:40 PM GIFTED TEACHER Stephanie Lai MD LAB - BLOOD ORDERA BLES [facility] [address] [facility] [address] Building, [address] [place] [address], [facility] [phone] * (ABNORMAL) Iron & Iron Binding Capacity (05/20/2022 12:40 PM GIFTED TEACHER) Iron 68 37 - 145 ug/dL 05/20/2022 5:37 PM GIFTED TEACHER [facility] Iron Binding Capacity 146(L) 240 - 430 ug/dL 05/20/2022 5:37 PM GIFTED TEACHER [facility] Iron Sat Index 47(H) 15 - 46 % 05/20/2022 5:37 PM GIFTED TEACHER [facility] Blood STRUCTURE OF RIGHT UPPER LIMB / Unknown Venipuncture / Unknown 05/20/2022 12:40 PM GIFTED TEACHER 05/20/2022 12:40 PM GIFTED TEACHER Stephanie Lai MD LAB - BLOOD ORDERA BLES Performing Organization Address City/[facility]/ZIP Co de Phone Number U LABORATORY [facility] [address] [facility], Room [address] [address], [facility] [phone] * (ABNORMAL) Ferritin (05/20/2022 12:40 PM GIFTED TEACHER) Ferritin 404(H) 6 - 175 ng/mL 05/20/2022 6:08 PM GIFTED TEACHER [facility] Blood STRUCTURE OF RIGHT UPPER LIMB / Unknown Venipuncture / Unknown 05/20/2022 12:40 PM GIFTED TEACHER 05/20/2022 12:40 PM GIFTED TEACHER Stephanie Lai MD LAB - BLOOD ORDERA BLES [facility] [facility] [address] [facility], Room [address] [place] [address], [facility] [phone] * (ABNORMAL) Comprehensive metabolic panel (05/20/2022 12:40 PM GIFTED TEACHER) Sodium 138 136 - 145 mmol/L 05/20/2022 5:50 PM GIFTED TEACHER [facility] Potassium 3.5 3.4 - 5.3 mmol/L 05/20/2022 5:50 PM GIFTED TEACHER [facility] Chloride 106 98 - 107 mmol/L 05/20/2022 5:50 PM GIFTED TEACHER [facility] Carbon Dioxide (CO2) 21(L) 22 - 29 mmol/L 05/20/2022 5:50 PM GIFTED TEACHER [facility] Anion Gap 11 7 - 15 mmol/L 05/20/2022 5:50 PM GIFTED TEACHER [facility] Urea Nitrogen 3.0(L) 6.0 - 20.0 mg/dL 05/20/2022 5:50 PM GIFTED TEACHER [facility] Creatinine 0.66 0.51 - 0.95 mg/dL 05/20/2022 5:50 PM GIFTED TEACHER [facility] Calcium 8.2(L) 8.6 - 10.0 mg/dL 05/20/2022 5:50 PM GIFTED TEACHER [facility] Glucose 87 70 - 99 mg/dL 05/20/2022 5:50 PM GIFTED TEACHER [facility] Alkaline Phosphatase 101 35 - 104 U/L 05/20/2022 5:50 PM GIFTED TEACHER [facility] AST 102(H) 10 - 35 U/L 05/20/2022 5:50 PM GIFTED TEACHER [facility] ALT 25 10 - 35 U/L 05/20/2022 5:50 PM GIFTED TEACHER [facility] Protein Total 9.0(H) 6.4 - 8.3 g/dL 05/20/2022 5:50 PM GIFTED TEACHER [facility] Albumin 2.7(L) 3.5 - 5.2 g/dL 05/20/2022 5:50 PM GIFTED TEACHER [facility] Bilirubin Total 2.0(H) <=1.2 mg/dL 05/20/2022 5:50 PM GIFTED TEACHER [facility] GFR Estimate >90 >60 mL/min/1.7 3m2 05/20/2022 5:50 PM GIFTED TEACHER [facility] Comment:eGFR calculated us2020 CKD-EPI equation. Blood STRUCTURE OF RIGHT UPPER LIMB / Unknown Venipuncture / Unknown 05/20/2022 12:40 PM GIFTED TEACHER 05/20/2022 12:40 PM GIFTED TEACHER Stephanie Lai MD LAB - BLOOD ORDERA BLES [facility] [place] [facility] 500 [facility] [address], [address] [place] [address] [phone] documented in this encounter Visit Diagnoses Diagnosis Normocytic anemia Anemia, unspecified documented in this encounter Care Teams Chief [employer]ervoir Engineering Relationship Specialty Start Date End Date Nelly Estevez MD [address] [address] PCP - General Family Medicine 04/25/22 Resident/Fellow, Physician 04/25/22 documented as of this encounter
--- OUTSIDE RECORDS SUMMARY | 2023-05-22 06:54 | XMS_ITS | Encounter Summary ---
Author Name Unknown Organization [place] Address Formerly [facility], [facility] [place] [address] Care Team Providers Care Roofing Machine Operator Name Role Phone Resident/Fellow, Physician Unavailable Unava Nelly So MD Primary Care Provider [phone] Encounter Details Date Type Department Care Team (Latest Contact Info) Description 06/09/2022 Travel Social History Tobacco Use Types Packs/Day [...] suspected to have Coronavirus/COVID-19? No / Unsure 06/09/2022 9:53 AM WELT WHEELER documented as of this encounter Plan of Treatment Not on file documented as of this encounter Visit Diagnoses Not on filedocumented in this encounter Care Teams Roofing Machine Operator Relationship Specialty Start Date End Date Nelly Estevez MD [address] [address] PCP - General Family Medicine 04/25/22 Resident/Fellow, Physician 04/25/22 documented as of this encounter
--- OUTSIDE RECORDS SUMMARY | 2023-05-22 06:54 | XMS_ITS | Encounter Summary ---
Author Name Unknown Organization [place] Address [address] [place] [address] Care Team Providers Care Buggy Ladle Tender Name Role Phone Resident/Fellow, Physician Unavailable Michelleva Nelly So MD Primary Care Provider [phone] Reason for Visit * Reason Comments Video Visit Follow Up Encounter Details Date Type Department Care Team (Late st Contact Info) Description 06/05/2022 4:30 PM BRANCH LENDING MANAGER Virtual Visit [facility] [address] [place] [address] Jasiel Kay MD Le-Kumar, MD Stephanie [address] [place] [address] Normocytic anemia (Primary Dx); Morbid obesity (H) Social History Tobacco Use Types Packs/Day Years Used Date Smoking Tobacco: Former Cigarettes Smokeless Tobacco: Never Tobacco Cessation:Counseling Given: Not Answered Sex and Gender Information Value Date Recorded Sex Assigned at Not on file Gender Identity Not on file Sexual Orientation Not on file COVID-19 Exposure Response Date Recorded In the last 10 days, have yo u been in contact with someone who was confirmed or suspected to have Coronavirus/COVID-19? No / Unsure 06/09/2022 9:53 AM BRANCH LENDING MANAGER documented as of this encounter Last Filed Vital Signs Vital Sign Reading Time Taken Comments Blood Pressure - - Pulse - - Temperature - - Respiratory Rate - - Oxygen Saturation - - Inhaled Oxygen Concentration - - Weight 124.7 kg (275 lb) 06/05/2022 4:01 PM BRANCH LENDING MANAGER Height 165.1 cm (5' 5) 06/05/2022 4:01 PM BRANCH LENDING MANAGER Body Mass Index 45.76 06/05/2022 4:01 PM BRANCH LENDING MANAGER documented in this encounter Progress Notes * Stephanie Lai MD - 06/05/2022 4:30 PM CST Emma is a 41 year old who is being evaluated via a billable video visit. How would you like to obtain your AVS? MyChart If the video visit is dropped, the invitation should be resent by: Send to e- mail at: [email or web address] Will anyone else be joining your video visit? No Connie Xavier Video-Visit Details Type of service: Video Visit Video Start Time: 4:32 PM Video End Time:5:00 PM Originating Location (pt. Location): Home Distant Location (provider location): On-site Platform used for Video Visit: Lito CH LENDING MANAGER * Stephanie Lai MD - 06/05/2022 4:30 PM CST Images from the original note were not included. [facility] Hematology Consultation [address] [place] [address] Outpatient Clinic Progress Note: Patient: Emma Flower [...] suggestive of chronic liver disease. ?? In regards to her abnormal coagulation values, her PT and PTT still remained elevated. Mixing studyshowed that PT did not correct but PTT did correct which can also be supported by the fact that shehas liver dysfunction. There is a concern for factor VII inhibitor, so will check factor VII assay as well as other factors to evaluate for deficiencies. D-dimer is elevated with low fibrinogen and haptoglobin so the differential could also support low level of DIC. Will obtain factor VIII levels to distinguish between liver dysfunction vs DIC. Fortunately, fibrinogen levels are still >100, noneed for any intervention at this time. Will repeat fibrinogen level as well. D-dimer and repeat fib rinogen will be helpful to rule out DIC. ?? Her workup for APLS is essentially negative given she does not have any lupus anticoagulant, beta 2glycoprotein or cardiolipin antibodies. Emma will return to in 3 months for repeat labs and monitoring of her levels Recommendations: 1. Will obtain Factor VIII to distinguish 2. Obtain factor 2, 5, 7, 9, and 10 as well 3. Repeat fibrinogen, PT, PTT, d-dimer, haptoglobin 4. RTC in 3 months with repeat labs Patient was seen and plan of care was discussed with attending physician Dr. Jasiel Kay. Stephanie Lai MD Heme/Onc/Transplant Fellow Pgr #[id number] Interval history: Today, Emma presents through video visit for her follow up. She states that she has been feeling well overall. She has been abstaining from alcohol the past month. Says that she got her labs checked more recently and her AST is coming down. She has not yet seen her secondary market manager but has an appointment soon. Review of Systems: 14 point ROS negative [...] appearance well-groomed. Labs: [facility] Lab Test 05/20/22 1240 NA 138 POTASSIUM 3.5 CHLORIDE 106 CO2 21* ANIONGAP 11 BUN 3.0* CR 0.66 GFRESTIMATED >90 EVANGELINA 8.2* PROTTOTAL 9.0* ALBUMIN 2.7* BILITOTAL 2.0* ALKPHOS 101 AST 102* ALT 25 LDH 171 Recent Labs Lab Test 05/20/22 1240 GLC 87 CBC Recent Labs Lab Test 05/20/22 1240 WBC 2.8* RBC 3.37* HGB 12.0 HCT 33.8* MCV 100 MCH 35.6* MCHC 35.5 RDW 16.3* PLT 145* COAGS Recent Labs Lab Test 05/20/22 1240 04/25/22 1335 INR 1.92* 2.04* 1.66* PTT 42* -- Protein Electrophoresis, Serum Order: [id number] - Part of Panel Order [id number] Status: Final result ?? Visible to patient: [...] requires clinical correlation.Kailey Maria M.D., Ph.D., Pathologist ([phone]). Contains abnormal data??[place] and lambda light chain Order: [id number] Status: Final result ?? Visible to patient: Yes (seen) ?? Dx: Normocytic anemia ?? 0 Result Notes Component Ref Range & Units 2 wk ago [place] Free Light Chains 0.33 - 1.94 mg/dL 15.09??High?? Lambda Free Light Chains 0.57 - 2.63 mg/dL 10.64??High?? [place] /Lambda Ratio 0.26 - 1.65 1.42 Resulting Agency SCORE Pathology: Bld morphology pathology review: [id number] Order: [id number] - Part of Panel Order [id number] Collected 05/20/2022 12:40 PM ?? Status: Final [...] CBC for this case was imported from [employer] and was confirmed accurate with a 200 [...] clumping or platelet- leukocyte satellitism is seen. CH LENDING MANAGER Associated attestation - Jasiel Kay MD - 06/12/2022 4:56 PM BRANCH LENDING MANAGER ATTENDING NOTE 06/05/2022 I was present for the critical part of the history and physical. I reveiwed Dr. Lai's note, and it reflects our joint assessment and plan. 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 Treatment of this is straightforward. Jasiel Kay MD, MSc baling machine operator Program Management Intern of Physician and Faculty Well-Being Division of Hematology, Oncology and Transplantation Faculty, [facility] [address] documented in this encounter Plan of Treatment Not on file documented as of this encounter Results * (ABNORMAL) Ferritin (08/28/2022 10:59 AM CDT) Ferritin 399(H) 6 - 175 ng/mL 08/28/2022 8:21 PM CDT [facility] Blood BLOOD SPECIMEN / Unknown Venipuncture / Unknown 08/28/2022 10:59 AM CDT 08/28/2022 11:00 AM CDT Stephanie Lai MD LAB - BLOOD ORDERA BLES [facility] Core Lab 500 [facility], [address] [address] [phone] * (ABNORMAL) Iron & Iron Binding Capacity [...] LAB - BLOOD ORDERA BLES U LABORATORY [facility] [place] Core Lab 500 [facility], [address] [address], [facility] [phone] * Partial thromboplastin time (08/28/2022 10:59 AM CDT) aPTT 38 22 - 38 Seconds 08/28/2022 6:25 PM CDT [facility] Blood BLOOD SPECIMEN / Unknown Venipuncture / Unknown 08/28/2022 10:59 AM CDT 08/28/2022 11:00 AM CDT Stephanie Lai MD LAB - BLOOD ORDERA BLES Performing Organization Address City/[facility]/ZIP Co de Phone Number LABORATORY [facility] Lab [address] [place] [address] Lab (no room number, 1st floor of clinic) [place] [address], [facility] [phone] * (ABNORMAL) INR (08/28/2022 10:59 AM CDT) INR 1.76(H) 0.85 - 1.15 08/28/2022 6:25 PM CDT [facility] Blood BLOOD SPECIMEN / Unknown Venipuncture / Unknown 08/28/2022 10:59 AM CDT 08/28/2022 11:00 AM CDT Stephanie Lai MD LAB - BLOOD ORDERA BLES LABORATORY [facility] Lab [address] [place] [address] Lab (no room number, 1st floor of [facility] [place] [address], [facility] [phone] * (ABNORMAL) Haptoglobin (08/28/2022 10:59 AM CDT) Haptoglobin 3(L) 32 - 197 mg/dL 08/29/2022 10:52 AM CDT SPECIALTY CORE/PROT/ENDO Blood BLOOD SPECIMEN / Unknown Venipuncture / Unknown 08/28/2022 10:59 AM CDT 08/28/2022 11:00 AM CDT Stephanie Lai MD LAB - BLOOD ORDERA BLES SPECIALTY CORE/PROT/ENDO Specialty Core/Prot/Endo 500 [facility], Room [address] [phone] * (ABNORMAL) Fibrinogen activity (08/28/2022 10:59 AM CDT) Pathologist [facility] Fibrinogen Activity 107(L) 170 - 490 mg/dL 08/28/2022 8:41 PM CDT [facility] Blood BLOOD SPECIMEN / Unknown Venipuncture / Unknown 08/28/2022 10:59 AM CDT 08/28/2022 11:00 AM CDT Stephanie Lai MD LAB - BLOOD ORDERA BLES [facility] [place] Core Lab 500 [facility], [address] [address] [phone] * (ABNORMAL) Comprehensive metabolic panel (08/28/2022 10:59 AM CDT) Pathologist [facility] Sodium 138 136 - 145 mmol/L 08/28/2022 [...] 8:21 PM CDT [facility] Comment:eGFR calculated us2020 CKD-EPI equation. Blood BLOOD SPECIMEN / Unknown Venipuncture / Unknown 08/28/2022 10:59 AM CDT 08/28/2022 11:00 AM CDT Stephanie Lai MD LAB - BLOOD ORDERA BLES [facility] [place] Core Lab [address] [facility], [address] [place] [address], [facility] [phone] * (ABNORMAL) Fibrinogen activity (06/09/2022 10:04 AM BRANCH LENDING MANAGER) Fibrinogen Activity 144(L) 170 - 490 mg/dL 06/09/2022 5:16 PM BRANCH LENDING MANAGER [facility] Blood STRUCTURE OF LEFT UPPER LIMB / Unknown Venipuncture / Unknown 06/09/2022 10:04 AM BRANCH LENDING MANAGER 06/09/2022 10:05 AM BRANCH LENDING MANAGER Stephanie Lai MD LAB - BLOOD ORDERA BLES [facility] [place] Core Lab [address] [facility], [address] [place] [address], [facility] [phone] * Partial thromboplastin time (06/09/2022 10:04 AM BRANCH LENDING MANAGER) aPTT 37 22 - 38 Seconds 06/09/2022 4:16 PM BRANCH LENDING MANAGER [facility] Blood STRUCTURE OF LEFT UPPER LIMB / Unknown Venipuncture / Unknown 06/09/2022 10:04 AM BRANCH LENDING MANAGER 06/09/2022 10:05 AM BRANCH LENDING MANAGER Stephanie Lai MD LAB - BLOOD ORDERA BLES [facility] LABORATORY [facility] Lab [address] [place] [address] Lab (no room number, 1st floor of clinic) [place] [address], [facility] [phone] * (ABNORMAL) INR (06/09/2022 10:04 AM BRANCH LENDING MANAGER) INR 1.58(H) 0.85 - 1.15 06/09/2022 4:15 PM BRANCH LENDING MANAGER [facility] Blood STRUCTURE OF LEFT UPPER LIMB / Unknown Venipuncture / Unknown 06/09/2022 10:04 AM BRANCH LENDING MANAGER 06/09/2022 10:05 AM BRANCH LENDING MANAGER Stephanie Lai MD LAB - BLOOD ORDERA BLES OX LABORATORY [facility] [address] [place] [address] Lab (no room number, 1st floor of clinic) [place] [address] [phone] * (ABNORMAL) Factor 10 assay (06/09/2022 10:04 AM BRANCH LENDING MANAGER) Factor 10 Assay 32(L) 60 - 140 % 06/10/2022 10:24 AM BRANCH LENDING MANAGER SPECIAL COAGULATION Comment: The Factor 10 activity level is a measure of Factor 10 activity and is not intended for monitoring anticoagulant therapy. The heparin level (anti-Xa) should be used to monitor heparin therapy. The chromogenic Factor 10 level is suggested as an alternative method to monitor vitamin K antagonist therapy (e.g. warfarin) in patients with an unreliable International Normalized Ratio (INR) due to a lupus anticoagulant. Blood STRUCTURE OF LEFT UPPER LIMB / Unknown Venipuncture / Unknown 06/09/2022 10:04 AM BRANCH LENDING MANAGER 06/09/2022 10:05 AM BRANCH LENDING MANAGER Stephanie Lai MD LAB - BLOOD ORDERA BLES Performing Organization Address City/[facility]/ZIP Co de Phone Number SPECIAL COAGULATION Special Coagulation [address] [facility], [address] [address], [facility] [phone] * (ABNORMAL) Factor 9 assay (06/09/2022 10:04 AM BRANCH LENDING MANAGER) [facility] Factor 9 Assay 37(L) 65 - 150 % 06/10/2022 10:21 AM BRANCH LENDING MANAGER SPECIAL COAGULATION Blood STRUCTURE OF LEFT UPPER LIMB / Unknown Venipuncture / Unknown 06/09/2022 10:04 AM BRANCH LENDING MANAGER 06/09/2022 10:05 AM BRANCH LENDING MANAGER Stephanie Lai MD LAB - BLOOD ORDERA BLES SPECIAL COAGULATION [facility] Special Coagulation [address] [facility], [address] [address], [facility] [phone] * (ABNORMAL) Factor 5 assay (06/09/2022 10:04 AM BRANCH LENDING MANAGER) Factor 5 Assay 53(L) 60 - 140 % 06/10/2022 10:37 AM BRANCH LENDING MANAGER [facility] SPECIAL COAGULATION Blood STRUCTURE OF LEFT UPPER LIMB / Unknown Venipuncture / Unknown 06/09/2022 10:04 AM BRANCH LENDING MANAGER 06/09/2022 10:05 AM BRANCH LENDING MANAGER Stephanie Lai MD LAB - BLOOD ORDERA BLES [facility] SPECIAL COAGULATION [facility] Special Coagulation [address], [address] [place] [address], [facility] [phone] * (ABNORMAL) Factor 2 assay (06/09/2022 10:04 AM BRANCH LENDING MANAGER) Factor 2 Assay 36(L) 60 - 140 % 06/10/2022 10:23 AM BRANCH LENDING MANAGER SPECIAL COAGULATION Blood STRUCTURE OF LEFT UPPER LIMB / Unknown Venipuncture / Unknown 06/09/2022 10:04 AM BRANCH LENDING MANAGER 06/09/2022 10:05 AM BRANCH LENDING MANAGER Stephanie Lai MD LAB - BLOOD ORDERA BLES Performing Organization Address City/[facility]/ZIP Co de Phone Number UM SPECIAL COAGULATION [facility] Special Coagulation [address] [facility] [address], [address] [place] [address], [facility] [phone] * Factor 8 assay (06/09/2022 10:04 AM BRANCH LENDING MANAGER) Factor 8 Assay 160 55 - 200 % 06/10/2022 10:25 AM BRANCH LENDING MANAGER [facility] SPECIAL COAGULATION Blood STRUCTURE OF LEFT UPPER LIMB / Unknown Venipuncture / Unknown 06/09/2022 10:04 AM BRANCH LENDING MANAGER 06/09/2022 10:05 AM BRANCH LENDING MANAGER Stephanie Lai MD LAB - BLOOD ORDERA BLES UM SPECIAL COAGULATION [facility] Special Coagulation [address], [address] [place] [address], [facility] [phone] * (ABNORMAL) Factor 7 assay (06/09/2022 10:04 AM BRANCH LENDING MANAGER) Factor 7 Assay 30(L) 50 - 129 % 06/10/2022 10:23 AM BRANCH LENDING MANAGER [facility] SPECIAL COAGULATION Blood STRUCTURE OF LEFT UPPER LIMB / Unknown Venipuncture / Unknown 06/09/2022 10:04 AM BRANCH LENDING MANAGER 06/09/2022 10:05 AM BRANCH LENDING MANAGER Stephanie Lai MD LAB - BLOOD ORDERA BLES UM SPECIAL COAGULATION [facility] Special Coagulation [address] [facility] [address], [address] [place] [address], [facility] [phone] documented in this encounter Visit Diagnoses Diagnosis Normocytic anemia- Primary Anemia, unspecified Morbid obesity (H) Morbid obesity documented in this encounter Care Teams Buggy Ladle Tender Relationship Specialty Start Date End Date Nelly Estevez MD [address] [address] PCP - General Family Medicine 04/25/22 Resident/Fellow, Physician 04/25/22 documented as of this encounter
--- OUTSIDE RECORDS SUMMARY | 2023-05-22 06:54 | XMS_ITS | Continuity of Care Document ---
Author Name Unknown Organization [facility] Address [address] [place] [address] Phone Care Team Providers Care Wood Carving Lathe Operator Name Role Phone Marly Gaines MD Unavailable Unavailable Allergies, Adverse Reactions, Alerts Substance Reaction Status Criticality No Known Allergies Active No Inform ation Medications Medication Instructions Dosage Effective Dates (start - stop) Status Comments cevimeline 30 mg capsule take 1 capsule by oral route 3 times every day as needed 30 MG - Active multivitamin tablet take 1 Tablet by Oral route every day 1 Tablet - Active levothyroxine 112 mcg capsule take 1 capsule by oral route every day 112 MCG - Active Vitamin D3 50 mcg (2,000 unit) tablet take 1 Tablet by Oral route every day [address] - [address] - ER 3 mg capsule,delayed,exte nded release take 3 capsule by oral route every evening 9 MG - No Longer Active Procedures Procedure Date Office/Outpatient Visit, Est Office/Outpatient Visit, Est Office/Outpatient Visit, New Routine Venipuncture Specimen Handling Complete Cbc WAuto Diff Wbc Rbc Sed Rate, Nonautomated Assay Of Creatinine Transferase (Ast) (Sgot) Alanine Amino (Alt) (Sgpt) CReactive Protein Dna Antibody, Single Strand Dna Antibody, [place] Nuclear Antigen Antibodies Office/Outpatient Visit, Est Routine [...] Protein Dna Antibody, Single Strand Dna Antibody, [place] Nuclear Antigen Antibodies Rheumatoid Factor, IGM Rheumatoid Factor, IGG, IGA Advance Directives Directive Yes / No Effective Date File Name No Information Encounters Encounter Description Practice Location Reason(s) For Visit Diagnoses Date Provider Providers Copied on Encounter Office/Outpa tient Visit, Est [facility], [address], [place], [address], [place] tel:[phone] [facility] [place] Follow Up of Sjogren's (chief complaint) Sjogren syndrome with keratoconjun ctivitisDecr eased white blood cell count, unspecifiedE levation of levels of liver transaminase levelsRash and other nonspecific skin eruption 3 Eder Luke. [facility] [address], [place], [address], [place]. tel:[phone] Referring Provider: Marly Winslow, [facility] [address], [place], [address]. tel:[phone] Office/Outpa tient Visit, Est [facility], [address], [place], [address], [place] tel:[phone] [facility] [place] Follow Up of Sjogren's (chief complaint) Sjogren syndrome with keratoconjun ctivitisAbno rmal results of liver function studies 3 Eder Luke. [facility] [address], [place], [address], [place]. tel:[phone] Referring Provider: Marly Winslow, [facility] [address], [place], [address]. tel:[phone] Office/Outpa tient Visit, New [facility], [address], [place], [address], [place] tel:[phone] [facility] [place] Sjogren's (chief complaint) Sjogren syndrome with keratoconjun ctivitisElev ation of levels of liver transaminase levelsMiscar riageAnemia 3 Eder Luke. [facility] [address], [place], [address], [place]. tel:[phone] Referring Provider: Marly Winslow, [facility] [address], [place], [address]. tel:[phone] Office/Outpa tient Visit, Est [facility], [address], [place], [address], [place] tel:[phone] [facility] , Sjogren's (chief complaint) LeukopeniaSj ogren syndromeElev ated liver enzymesBone healthHigh risk medication monitoring 8 Ed Espinoza. [facility] [address], [place], [address], [place]. tel:[phone] Referring Provider: Alexis Winslow, [facility] [address], [place], [address]. tel:[phone] Office/Outpa tient Visit, Est [facility], [address], [place], [address], [place] tel:[phone] [facility] , Sjogren syndromeElev ated liver enzymesBone healthHigh risk medication monitoringLe ukopenia 8 Ed Espinoza. [facility] [address], [place], [address], [place]. tel:[phone] Referring Provider: Alexis Winslow, [facility] [address], [place], [address]. tel:[phone] Office/Outpa tient Visit, Est [facility], [address], [place], [address], [place] tel:[phone] [facility] , Sjogren's (chief complaint) Sjogren syndromeHigh risk medication monitoringBo [facility] ed liver enzymes 8 Ed Espinoza. [facility] [address], [place], [address], [place]. tel:[phone] Referring Provider: Alexis Winslow, [facility] [address], [place], [address]. tel:[phone] Office/Outpa tient Visit, New [facility], [address], [place], [address], [place] tel:[phone] [facility] , Abnormal Lab Study (chief complaint) Positive AntibodyElev ated liver enzymes 8 Ed Espinoza. [facility] [address], [place], [address], [place]. tel:[phone] Referring Provider: Alexis Winslow, [facility] [address], [place], [address]. tel:[phone] Family History Family Member Type Diagnosis Age At Onset Problem (finding) No family hist ory of Systemic lupus erythematosus Problem Family history of hypertensi on Payers Payer name Insurance type Covered democrat ID Authoriza tiemmanuel(s) [facility] [id number] Social History Type Description Quantity Date Captured [...] Percentile BMI percentile Pulse Ox Inhaled Ox 1:51 PM 66.25 in 89.993 kg (198.40 lbs) 31.7 8 kg/m eter (2) 122/70 mm[Hg] 98.30 F Chief Complaint And Reason For Visit From encounter dated '04/22/2023 13:45'. Follow Up of Sjogren's (chief complaint) Reason For Referral Reason For Referral No Information Plan Of Treatment Date Type Action Status Appointment Emma Flower BOOKED History Of Present Illness Encounter Date Complaint History Of Prese nt Illness Follow Up of Sjogren's Follow Up of Sjogren's Sjogren's Sjogren's Sjogren's Sjogren's Abnormal Lab Study Functional Status Date Functional Assessmen t No Information Instructions Date Instruction Additional Infor mation No Information Assessments Type Assessment Date assessment Sjogren syndrome with keratoconj unctivitis assessment Decreased white blood cell count , unspecified assessment Elevation of levels of liver tra nsaminase levels assessment Rash and other nonspecific skin eruption Patient Care Teams Name Effective Dates (start - stop) Status Members No Information
--- OUTSIDE RECORDS SUMMARY | 2023-05-22 06:54 | XMS_ITS | Encounter Summary ---
Author Name Unknown Organization [place] Address [address] [place] [address] Care Team Providers Care Funeral Car Driver Name Role Phone Resident/Fellow, Physician Unavailable Michelleva Nelly So MD Primary Care Provider [phone] Encounter Details Date Type Department Care Team (Late st Contact Info) Description 06/02/2022 1:[address] [facility] [address] [place] [address] Normocytic anemia Social History Tobacco [...] Coronavirus/COVID-19? No / Unsure 06/02/2022 1:22 PM HOG STICKER documented as of this encounter Plan of Treatment Not on file documented as of this encounter Procedures Procedure Name Priority Date/Time Associated Diagnosis Comments OCCULT BLOOD STOOL Routine 06/02/2022 1: 32 PM HOG STICKER Normocytic anemia documented in this encounter Results * Occult blood stool (06/02/2022 1:32 PM HOG STICKER) Occult Blood Negative Negative LEIGHA 06/02/2022 1:35 PM HOG STICKER [facility] Stool RECTAL CONTENTS / Unknown Non-blood Collection / Unknown 06/02/2022 1:32 PM HOG STICKER 06/02/2022 1:32 PM HOG STICKER Stephanie Lai MD LAB - STOOLS ORDER NING LAB[facility]AT[facility] [address] [facility] (no room number, 1st floor of clinic) [place] [address] [phone] documented in this encounter Visit Diagnoses Diagnosis Normocytic anemia Anemia, unspecified documented in this encounter Care Teams Funeral Car Driver Relationship Specialty Start Date End Date Nelly Estevez MD [address] [address] PCP - General Family Medicine 04/25/22 Resident/Fellow, Physician 04/25/22 documented as of this encounter
--- OUTSIDE RECORDS SUMMARY | 2023-05-22 06:54 | XMS_ITS | Encounter Summary ---
Author Name Unknown Organization [place] Address [address] [place] [address] Care Team Providers Care Fish Farmer Name Role Phone Resident/Fellow, Physician Unavailable Unava Nelly So MD Primary Care Provider [phone] [phone] Encounter Details Date Type Department Care Team (Late st Contact Info) Description 06/06/2022 [facility] Medical Advice [facility] [address] [place] [address] Stephanie Lai MD [address] [place] [address] Social History Tobacco Use Types Packs/Day Years [...] Coronavirus/COVID-19? No / Unsure 06/09/2022 9:53 AM PATIENT CARE TECHNICIAN documented as of this encounter Plan of Treatment Not on file documented as of this encounter Visit Diagnoses Not on filedocumented in this encounter Care Teams Fish Farmer Relationship Specialty Start Date End Date Nelly Estevez MD [address] [address] PCP - General Family Medicine 04/25/22 Resident/Fellow, Physician 04/25/22 documented as of this encounter
--- OUTSIDE RECORDS SUMMARY | 2023-05-22 06:54 | XMS_ITS | Encounter Summary ---
Author Name Unknown Organization [facility] Address [address] [place] [address] Care Team Providers Care Software Test Specialist Name Role Phone Resident/Fellow, Physician Unavailable Unava Nelly So MD Primary Care Provider [phone] [phone] Encounter Details Date Type Department Care Team (Late st Contact Info) Description 05/30/2022 [facility] Medical Advice [facility] [address] [place] [address] Stephanie Lai MD [address] [place] [address] Social History Tobacco Use Types [...] Coronavirus/COVID-19? No / Unsure 06/02/2022 1:22 PM GAS TORCH SOLDERER documented as of this encounter Plan of Treatment Not on file documented as of this encounter Visit Diagnoses Not on filedocumented in this encounter Care Teams Software Test Specialist Relationship Specialty Start Date End Date Nelly Estevez MD [address] [id number] PCP - General Family Medicine 04/25/22 Resident/Fellow, Physician 04/25/22 documented as of this encounter
--- OUTSIDE RECORDS SUMMARY | 2023-05-22 06:54 | XMS_ITS | Encounter Summary ---
Author Name Unknown Organization [place] Address [facility] [place] [address] Care Team Providers Care Bullet Lubricant Mixer Name Role Phone Resident/Fellow, Physician Unavailable Unava Nelly So MD Primary Care Provider [phone] [phone] Encounter Details Date Type Department Care Team (Latest Contact Info) Description 06/02/2022 Travel Social History Tobacco Use Types Packs/Day [...] Coronavirus/COVID-19? No / Unsure 06/02/2022 1:22 PM MATERIAL CONTROL MANAGER documented as of this encounter Plan of Treatment Not on file documented as of this encounter Visit Diagnoses Not on filedocumented in this encounter Care Teams Bullet Lubricant Mixer Relationship Specialty Start Date End Date Nelly Estevez MD [address] [address] PCP - General Family Medicine 04/25/22 Resident/Fellow, Physician 04/25/22 documented as of this encounter
--- OUTSIDE RECORDS SUMMARY | 2023-05-22 06:54 | XMS_ITS | Encounter Summary ---
Author Name Unknown Organization [place] Address [address] [place] [address] Care Team Providers Care Interlocking Pavement Installer Name Role Phone Resident/Fellow, Physician Unavailable Unava Nelly So MD Primary Care Provider [phone] [phone] Encounter Details Date Type Department Care Team (Late st Contact Info) Description 07/24/2022 7:03 AM CDT - 07/24/2022 11:00 AM CDT Hospital Encounter [facility] [address] [place] [address] Danielle Estevez MD [address] [place] [address] [id number] Rodrigue Lozano MD [facility] [address] [place], [place] [address] Discharge Disposition: Home or Self Care Social [...] AM CDT documented as of this encounter Medications at Time of Discharge Medication Sig Dispensed Refills Start Date End Date levothyroxine (SYNTHROID/LEVOTHROID) 150 MCG tablet Take 1 tablet by mouth daily at 2 pm 0 01/15/2022 pilocarpine (SALAGEN) 5 MG tablet Take 1 tablet by mouth 3 times daily 0 05/06/2022 documented as of this encounter Plan of Treatment Not on file documented as of this encounter Visit Diagnoses Not on filedocumented in this encounter Care Teams Interlocking Pavement Installer Relationship Specialty Start Date End Date Nelly Estevez MD [place] [id number] PCP - General Family Medicine 04/25/22 Resident/Fellow, Physician 04/25/22 documented as of this encounter
--- OUTSIDE RECORDS SUMMARY | 2023-05-22 06:54 | XMS_ITS | Encounter Summary ---
Author Name Unknown Organization [place] Address [address] [place] [address] Care Team Providers Care Dietitian Teacher Name Role Phone Resident/Fellow, Physician Unavailable Unava Nelly So MD Primary Care Provider [phone] [phone] Encounter Details Date Type Department Care Team (Late st Contact Info) Description 06/09/2022 Telephone [facility] [address] [place] [address] Stephanie Lai MD [address] [place] [address] Social History Tobacco Use Types [...] Coronavirus/COVID-19? No / Unsure 06/09/2022 9:53 AM ENVIRONMENTAL MAINTENANCE WORKER documented as of this encounter Plan of Treatment Not on file documented as of this encounter Visit Diagnoses Not on filedocumented in this encounter Care Teams Dietitian Teacher Relationship Specialty Start Date End Date Nelly Estevez MD [address] [address] PCP - General Family Medicine 12/30/22 Resident/Fellow, Physician 04/25/22 documented as of this encounter
--- OUTSIDE RECORDS SUMMARY | 2023-05-22 06:54 | XMS_ITS | Encounter Summary ---
Author Name Unknown Organization [place] Address [facility] [place] [address] Care Team Providers Care Human Services Care Specialist Name Role Phone Resident/Fellow, Physician Unavailable Michelleva Nelly So MD Primary Care Provider [phone] [phone] Encounter Details Date Type Department Care Team (Late st Contact Info) Description 06/09/2022 10:00 AM SITE RELIABILITY ENGINEER [facility] [address] [place] [address] Normocytic anemia Social History Tobacco [...] Coronavirus/COVID-19? No / Unsure 06/09/2022 9:53 AM SITE RELIABILITY ENGINEER documented as of this encounter Plan of Treatment Not on file documented as of this encounter Procedures Procedure Name Priority Date/Time Associated Diagnosis Comments INR Routine 06/09/2022 10:04 AM SITE RELIABILITY ENGINEER Normocytic anemia PARTIAL THROMBOPLASTIN TIME Routine 06/09/2022 10:04 AM SITE RELIABILITY ENGINEER Normocytic anemia FIBRINOGEN ACTIVITY Routine 06/09/2022 1 0:04 AM SITE RELIABILITY ENGINEER Normocytic anemia FACTOR 9 ASSAY Routine 06/09/2022 10:04 AM SITE RELIABILITY ENGINEER Normocytic anemia FACTOR 8 ASSAY Routine 06/09/2022 10:04 AM SITE RELIABILITY ENGINEER Normocytic anemia FACTOR 7 ASSAY Routine 06/09/2022 10:04 AM SITE RELIABILITY ENGINEER Normocytic anemia FACTOR 5 ASSAY Routine 06/09/2022 10:04 AM SITE RELIABILITY ENGINEER Normocytic anemia FACTOR 2 ASSAY Routine 06/09/2022 10:04 AM SITE RELIABILITY ENGINEER Normocytic anemia FACTOR 10 ASSAY Routine 06/09/2022 10:04 AM SITE RELIABILITY ENGINEER Normocytic anemia documented in this encounter Results * (ABNORMAL) Fibrinogen activity (06/09/2022 10:04 AM SITE RELIABILITY ENGINEER) Fibrinogen Activity 144(L) 170 - 490 mg/dL 06/09/2022 5:16 PM SITE RELIABILITY ENGINEER [facility] Blood STRUCTURE OF LEFT UPPER LIMB / Unknown Venipuncture / Unknown 06/09/2022 10:04 AM SITE RELIABILITY ENGINEER 06/09/2022 10:05 AM SITE RELIABILITY ENGINEER Stephanie Lai MD LAB - BLOOD ORDERA BLES [facility] [place] [facility] [address] [facility], [address] [id number], [facility] [phone] * Partial thromboplastin time (06/09/2022 10:04 AM SITE RELIABILITY ENGINEER) aPTT 37 22 - 38 Seconds 06/09/2022 4:16 PM SITE RELIABILITY ENGINEER [facility] Blood STRUCTURE OF LEFT UPPER LIMB / Unknown Venipuncture / Unknown 06/09/2022 10:04 AM SITE RELIABILITY ENGINEER 06/09/2022 10:05 AM SITE RELIABILITY ENGINEER Stephanie Lai MD LAB - BLOOD ORDERA BLES [facility] [address] Lab (no room number, 1st floor of clinic) [place] [address], [facility] [phone] * (ABNORMAL) INR (06/09/2022 10:04 AM SITE RELIABILITY ENGINEER) INR 1.58(H) 0.85 - 1.15 06/09/2022 4:15 PM SITE RELIABILITY ENGINEER [facility] Blood STRUCTURE OF LEFT UPPER LIMB / Unknown Venipuncture / Unknown 06/09/2022 10:04 AM SITE RELIABILITY ENGINEER 06/09/2022 10:05 AM SITE RELIABILITY ENGINEER Stephanie Lai MD LAB - BLOOD ORDERA BLES [facility] [address] Lab (no room number, [facility]st floor of [facility] [place] [address], [facility] [phone] * (ABNORMAL) Factor 10 assay (06/09/2022 10:04 AM SITE RELIABILITY ENGINEER) Factor 10 Assay 32(L) 60 - 140 % 06/10/2022 10:24 AM SITE RELIABILITY ENGINEER [facility] Comment: The Factor 10 activity [...] Unknown Venipuncture / Unknown 06/09/2022 10:04 AM SITE RELIABILITY ENGINEER 06/09/2022 10:05 AM SITE RELIABILITY ENGINEER Stephanie Lai MD LAB - BLOOD ORDERA BLES [facility] [address] [facility], [address] [place] [address], [facility] [phone] * (ABNORMAL) Factor 9 assay (06/09/2022 10:04 AM SITE RELIABILITY ENGINEER) Factor 9 Assay 37(L) 65 - 150 % 06/10/2022 10:21 AM SITE RELIABILITY ENGINEER [facility] Blood STRUCTURE OF LEFT UPPER LIMB / Unknown Venipuncture / Unknown 06/09/2022 10:04 AM SITE RELIABILITY ENGINEER 06/09/2022 10:05 AM SITE RELIABILITY ENGINEER Stephanie Lai MD LAB - BLOOD ORDERA BLES [facility] [address] [facility] [address] Building, [address] [place] [address], [place] [phone] * (ABNORMAL) Factor 5 assay (06/09/2022 10:04 AM SITE RELIABILITY ENGINEER) Factor 5 Assay 53(L) 60 - 140 % 06/10/2022 10:37 AM SITE RELIABILITY ENGINEER [facility] Blood STRUCTURE OF LEFT UPPER LIMB / Unknown Venipuncture / Unknown 06/09/2022 10:04 AM SITE RELIABILITY ENGINEER 06/09/2022 10:05 AM SITE RELIABILITY ENGINEER Stephanie Lai MD LAB - BLOOD ORDERA BLES Performing Organization Address City/[facility]/ZIP Co de Phone Number [facility] [address] [facility] [address] Building, [address] [place] [address], [place] [phone] * (ABNORMAL) Factor 2 assay (06/09/2022 10:04 AM SITE RELIABILITY ENGINEER) Factor 2 Assay 36(L) 60 - 140 % 06/10/2022 10:23 AM SITE RELIABILITY ENGINEER [facility] Blood STRUCTURE OF LEFT UPPER LIMB / Unknown Venipuncture / Unknown 06/09/2022 10:04 AM SITE RELIABILITY ENGINEER 06/09/2022 10:05 AM SITE RELIABILITY ENGINEER Stephanie Lai MD LAB - BLOOD ORDERA BLES [facility] [address] [facility] [address] Building, [address] [place] [address], [place] [phone] * Factor 8 assay (06/09/2022 10:04 AM SITE RELIABILITY ENGINEER) Factor 8 Assay 160 55 - 200 % 06/10/2022 10:25 AM SITE RELIABILITY ENGINEER [facility] Blood STRUCTURE OF LEFT UPPER LIMB / Unknown Venipuncture / Unknown 06/09/2022 10:04 AM SITE RELIABILITY ENGINEER 06/09/2022 10:05 AM SITE RELIABILITY ENGINEER Stephanie Lai MD LAB - BLOOD ORDERA BLES [facility] [address] [facility], [address] [place] [address], [facility] [phone] * (ABNORMAL) Factor 7 assay (06/09/2022 10:04 AM SITE RELIABILITY ENGINEER) Factor 7 Assay 30(L) 50 - 129 % 06/10/2022 10:23 AM SITE RELIABILITY ENGINEER [facility] Blood STRUCTURE OF LEFT UPPER LIMB / Unknown Venipuncture / Unknown 06/09/2022 10:04 AM SITE RELIABILITY ENGINEER 06/09/2022 10:05 AM SITE RELIABILITY ENGINEER Stephanie Lai MD LAB - BLOOD ORDERA BLES [facility] [address] [facility], [address] [place] [address], [facility] [phone] documented in this encounter Visit Diagnoses Diagnosis Normocytic anemia Anemia, unspecified documented in this encounter Care Teams Human Services Care Specialist Relationship Specialty Start Date End Date Nelly Estevez MD [address] [address] PCP - General Family Medicine 04/25/22 Resident/Fellow, Physician 04/25/22 documented as of this encounter
--- OUTSIDE RECORDS SUMMARY | 2023-05-22 06:54 | XMS_ITS | Encounter Summary ---
Author Name Unknown Organization [place] Address [address] [place] [address]. [place] [address] Care Team Providers Care Sports Commentator Name Role Phone Resident/Fellow, Physician Unavailable Unava ilNelly Arce MD Primary Care Provider +1 -[phone] Encounter Details Date Type Department Care Team (Latest Contact Info) Description 07/01/2022 Medical Correspondence [facility] Srs [address] [place] [address] Outside, Provider ORDER FOR LIVER BIOPSY WITH ULTRASOUND GUIDANCE [facility] Social History Tobacco Use Types Packs/Day Years [...] on filedocumented in this encounter Care Teams Sports Commentator Relationship Specialty Start Date End Date Nelly Estevez MD [address] [address] PCP - General Family Medicine 04/25/22 Resident/Fellow, Physician 04/25/22 documented as of this encounter
--- OUTSIDE RECORDS SUMMARY | 2023-05-22 06:54 | XMS_ITS | Encounter Summary ---
Author Name Unknown Organization [place] Address [address] [place] [address] Care Team Providers Care Director Of Undergraduate Admissions Name Role Phone Resident/Fellow, Physician Unavailable Unava ilable Nelly Estevez MD Primary Care Provider +1 -[phone] Encounter Details Date Type Department Care Team (Late st Contact Info) Description 07/23/2022 Telephone [facility] [address] [place] [phone] Sofia Gillespie, RN Social History Tobacco Use Types Packs/Day Years [...] on filedocumented in this encounter Care Teams Director Of Undergraduate Admissions Relationship Specialty Start Date End Date Nelly Estevez MD [address] [address] PCP - General Family Medicine 04/25/22 Resident/Fellow, Physician 04/25/22 documented as of this encounter
--- OUTSIDE RECORDS SUMMARY | 2023-05-22 06:54 | XMS_ITS | Encounter Summary ---
Author Name Unknown Organization [place] Address [address] [place] [address] Care Team Providers Care Manager Retail Sales Name Role Phone Resident/Fellow, Physician Unavailable Unava Nelly So MD Primary Care Provider [phone] Encounter Details Date Type Department Care Team (Late st Contact Info) Description 05/20/2022 [facility] Medical Advice [facility] [address] [place] [address] Stephanie Lai MD [address] [place] [address] Social History Tobacco Use Types [...] suspected to have Coronavirus/COVID-19? No / Unsure 05/20/2022 12:20 PM LACE PAPER MACHINE OPERATOR documented as of this encounter Plan of Treatment Not on file documented as of this encounter Visit Diagnoses Not on filedocumented in this encounter Care Teams Manager Retail Sales Relationship Specialty Start Date End Date Nelly Estevez MD [address] [address] PCP - General Family Medicine 04/25/22 Resident/Fellow, Physician 04/25/22 documented as of this encounter
--- OUTSIDE RECORDS SUMMARY | 2023-05-22 06:54 | XMS_ITS | Encounter Summary ---
Author Name Unknown Organization [place] Address [address] [place] [address] Care Team Providers Care Sign Painter Apprentice Name Role Phone Resident/Fellow, Physician Unavailable Unava ilNelly Arce MD Primary Care Provider [phone] Encounter Details Date Type Department Care Team (Late st Contact Info) Description 05/26/2022 [facility] [address] [address] Suni Latham RN Social History Tobacco Use Types Packs/Day [...] Coronavirus/COVID-19? No / Unsure 05/20/2022 12:20 PM MACHINE II ENGRAVER documented as of this encounter Plan of Treatment Not on file documented as of this encounter Visit Diagnoses Not on filedocumented in this encounter Care Teams Sign Painter Apprentice Relationship Specialty Start Date End Date Nelly Estevez MD [address] [address] PCP - General Family Medicine 04/25/22 Resident/Fellow, Physician 04/25/22 documented as of this encounter
--- OUTSIDE RECORDS SUMMARY | 2023-05-22 06:54 | XMS_ITS | Encounter Summary ---
Author Name Unknown Organization [place] Address [facility] [place] [address] Care Team Providers Care Scrap Metal Processing Worker Name Role Phone Resident/Fellow, Physician Unavailable Unava Nelly So MD Primary Care Provider [phone] Encounter Details Date Type Department Care Team (Latest Contact Info) Description 07/17/2022 Travel Social History Tobacco Use Types Packs/Day [...] suspected to have Coronavirus/COVID-19? No / Unsure 07/17/2022 12:38 PM CDT documented as of this encounter Plan of Treatment Not on file documented as of this encounter Visit Diagnoses Not on filedocumented in this encounter Care Teams Scrap Metal Processing Worker Relationship Specialty Start Date End Date Nelly Estevez MD [address] [address] PCP - General Family Medicine 04/25/22 Resident/Fellow, Physician 04/25/22 documented as of this encounter
--- OUTSIDE RECORDS SUMMARY | 2023-05-22 06:55 | XMS_ITS | Continuity of Care Document ---
Author Name Unknown Organization [facility] Address [address] [address] [place] [address] Phone Care Team Providers Care Diabetic Educator Name Role Phone Malka DINORAHSofia Unavailable Unavailable [...] 30 MG - Active Procedures Procedure Date Routine Serum Collection FibroScan Offic/outpt E&m Estab Mod-hi 2 Routine Serum [...] Diagnoses Date Provider Providers Copied on Encounter [facility], [address] [address], [place], [id number], [place] tel:[phone] [facility] Elevated liver function tests 4 Watjodygel PAC Sofia. [address] [facility], [facility] [address], [place], [id number], [place]. tel:[phone] [facility] CERVANTES, [address] [address], [place], [id number], [place] tel:[phone] [facility] Alcoholic cirrhosis of liver without ascites 4 WatLydia PAC Sofia. [address] [facility], [facility] [address], [place], [id number], [place]. tel:[phone] Referring Provider: Referral Self, USE FOR SELF REFERRALS. [facility], [address] [address], [place], [id number], [place] tel:[phone] [facility] Alcoholic cirrhosis of liver without ascites 3 Wattengel PAC Sofia. [address] [facility], [facility] [address] [place], [place], [address], [place]. tel:[phone] Referring Provider: Referral Self, USE FOR SELF REFERRALS. Offic/outpt E&m Estab Mod-hi 2 [facility], [address] [address], [place], [id number], [place] tel:[phone] [facility] GI Symptoms or Concerns (chief complaint) Alcoholic cirrhosis of liver without ascitesAutoimm une hepatitis 3 Malka Black. [address] [facility], [facility] [address], [place], [place], [address], [place]. tel:[phone] Referring Provider: Referral Self, USE FOR SELF REFERRALS. [facility], [address] [address], [place], [address], [place] tel:[phone] [facility] Alcoholic cirrhosis of liver without ascitesAbnorma l liver function test Jan- 3 Caleb Randall. [address] [facility], [facility] [address], [place], [place], [address], [place]. tel:[phone] [facility], [address] [address], [place], [address], [place] tel:[phone] [facility] Autoimmune hepatitis Jan- 3 Malka Black. [address] [facility], [address], [id number], [place]. tel:[phone] Referring Provider: Referral Self, USE FOR SELF REFERRALS. [facility], [address] [address], [place], [address], [place] tel:[phone] [facility] Autoimmune hepatitis Sep- 3 Malka Black. [address] [facility], [facility] [address], [place], [address], [place]. tel:[phone] [facility], [address] [address], [place], [address], [place] tel:[phone] [facility] Other specified abnormal findings of blood chemistry Sep-0 3 Malka Black. [address] [facility], [facility] [address], [place], [address], [place]. tel:[phone] Referring Provider: Referral Self, USE FOR SELF REFERRALS. [facility], [address] [address], [place], [address], [place] tel:[phone] [facility] Abnormal liver function test Nov- 3 Marty Bennett. [address] [facility], [facility] [address], [place], [place], [address], [place]. tel:[phone] [facility], [address] [address], [place], [address], [place] tel:[phone] [facility] Unspecified cirrhosis of liver 3 Malka Black. [address] [facility], [address], [place], [place], [address], [place]. tel:[phone] Referring Provider: Referral Self, USE FOR SELF REFERRALS. Offic/outpt E&m Estab Mod-hi 2 [facility], [address] [address], [place], [address], [place] tel:[phone] [facility] GI Symptoms or Concerns (chief complaint) Cirrhosis of liver without ascites, unspecified hepatic cirrhosis type 3 Malka Black. [address] [facility], [facility] [address], [place], [place], [address], [place]. tel:[phone] Referring Provider: Sofia COPELAND, [address] [place] [address] [address], [place], [address] . tel:[phone] [facility], [address] [address], [place], [address], [place] tel:[phone] [facility] Alcoholic cirrhosis of liver without ascites 3 Malka Black. [address] [facility], [facility] [address], [place], [place], [address], [place]. tel:[phone] Referring Provider: Sofia COPELAND, [address] [facility] [address], [place], [address] . tel:[phone] [facility], [address] [address], [place], [address], [place] tel:[phone] [facility] No Information 3 Malka Black. [address] [facility], [address], [place], [place], [address], [place]. tel:[phone] Telephone E&M III 21-30 Min MD MELLISA [facility], [address] [address], [place], [address], [place] tel:[phone] [facility] GI Symptoms or Concerns (chief complaint) Alcoholic cirrhosis of liver without ascitesAutoimm une hepatitis Apr-2 3 Wattengel PAC Sofia. [address] [facility], [address], [place], [place], [address], [place]. tel:[phone] Referring Provider: Referral Self, USE FOR SELF REFERRALS. [facility], [address] [address], [place], [id number], [place] tel:[phone] [facility] Alcoholic cirrhosis of liver without ascites Apr-2 0- 3 Wattengel PAC Sofia. [address] [facility], [facility] [address], [place], [address], [place]. tel:[phone] Referring Provider: Referral Self, USE FOR SELF REFERRALS. [facility], [address] [address], [place], [id number], [place] tel:[phone] [facility] GI Symptoms or Concerns (chief complaint) Portal hypertensive gastropathyPor mirza hypertension Apr-1 3- 3 Link MD Malagon. [address] [facility], [address], [place], [address], [place]. tel:[phone] Referring Provider: Referral Self, USE FOR SELF REFERRALS. [facility], [address] [address], [place], [id number], [place] tel:[phone] [facility] Alcoholic cirrhosis of liver without ascites Apr-0 3 Wattengel PAC Sofia. [address] [facility], [address], [place], [address], [place]. tel:[phone] New Level 4 [facility], [address] [address], [place], [address], [place] tel:[phone] [facility] GI Symptoms or Concerns (chief complaint) Abnormal liver function test Mar-0 3 Wattengel PAC Sofia. [address] [facility], [address], [place], [place], [address], [place]. tel:[phone] [facility], [address] [address], [place], [address], [place] tel:[phone] No Information No Information Referring Provider: Cristiano COPELAND, [address], [place], [address]. tel:[phone] Family History Family Member Type Diagnosis Age At Onset Father Problem (finding) Alcoholism Immunizations Vaccine Date Status Comments tetanus and diphtheria toxoi ds, adsorbed, preservative free, for adult use (5 Lf of tetanus toxoid and 2 Lf of diphtheria toxoid) administered Note: [facility] bi-direct ional interface ; Source: Other Registry Payers Payer name Insurance type Covered democrat ID Odessa peterson(s) Kirsten MASON [id number] Social History Type Description Quantity Date Captured [...] With Ultrasound Guidance Appointment date/timeframe: 07/23/2022 ordered History Of Present Illness Encounter Date Complaint [...] elevated smooth muscle antibody level by her senior risk manager. We did draw immunoglobulins on August 14 [...] muscle antibody, which was completed through her senior risk manager's office. I do not have that lab [...] No Information Assessments Type Assessment Date assessment Elevated liver function tests Patient Care Teams Name Effective Dates (start - stop) Status Members No Information
== END 2023-05-20 13:12 | disposition home or self-care (01) ==
LOC: NFLDREF 05-22 06:51
PROVIDERS: PCP Family Medicine; Referring Provider Family Medicine; Visit Provider Family Medicine
DX: K74.60 Unspecified cirrhosis of liver (principal); M35.00 Sjogren syndrome, unspecified
CPT/HCPCS: 80053; 86140; 86160

== ENCOUNTER 2024-01-21 14:15 | Outpatient (CLI) | payer BC, SELFPAY ==
--- OUTSIDE RECORDS SUMMARY | 2024-01-21 14:18 | XMS_ITS | Continuity of Care Document ---
Author Organization [facility] Address [address] [place] [address] Phone Care Team Providers Care Deputy Prosecuting Attorney Name Role Phone Eder DELCID, Marly Unavailable Unavailable Allergies, Adverse Reactions, Alerts Substance Reaction Status Criticality No Known Allergies Active No Inform ation Medications Medication Instructions Dosage Effective Dates (start - stop) Status Comments cevimeline 30 mg capsule take 1 capsule by oral route 3 times every day as needed 30 MG - Active Mag Glycinate 100 mg tablet take 3 tablet by oral route every day 3 tablet - Active multivitamin tablet take 1 Tablet by Ora l route every day 1 Tablet - Active levothyroxine 112 mcg capsule take 1 capsule by oral route every day 112 MCG - Active Vitamin D3 50 mcg (2,000 unit) tablet take 1 Tablet by Oral route every day 1 Tablet - Active Procedures Procedure Date Office/Outpatient Visit, Est Complex e/m visit add on Routine Venipuncture Complete Cbc WAuto Diff Wbc Assay Of Creatinine Transferase (Ast) (Sgot) Alanine Amino (Alt) (Sgpt) Assay Alkaline Phosphatase CReactive Protein Complement, Antigen Office/Outpatient Visit, Est Office/Outpatient Visit, Est Office/Outpatient Visit, New Routine Venipuncture Specimen Handling Complete Cbc WAuto Diff Wbc Rbc Sed Rate, Nonautomated Assay Of Creatinine Transferase (Ast) (Sgot) Alanine Amino (Alt) (Sgpt) CReactive Protein Dna Antibody, Single Strand Dna Antibody, [place] Nuclear Antigen Antibodies Office/Outpatient Visit, Est Routine [...] Protein Dna Antibody, Single Strand Dna Antibody, [place] Nuclear Antigen Antibodies Rheumatoid Factor, IGM Rheumatoid Factor, IGG, IGA Results Test Name Date and Time Measure Units Reference Range Abnormal Flag Status Comments Panel Description: CBC 3 part diff Final WBC 14:34:00 3.6 K/uL 4.0-10.0 L Final Lymphocyte% 14:34:00 38.00 % 25.00-50.00 Final Mid% 14:34:00 5.0 % 1.0-18.0 Final Gran% 14:34:00 57.0 % 45.0-76.0 Final Lymphocyte # 14:34:00 1.3 K/uL 1.0-4.0 Final Mid # 14:34:00 0.1 K/uL 0.1-2.0 Final Gran # 14:34:00 2.2 K/uL 1.2-6.7 Final RBC 14:34:00 3.87 M/uL 3.80-5.80 Final Hemoglobin 14:34:00 12.1 g/dL 11.5-16.0 Final Hematocrit 14:34:00 35.8 % 37.0-47.0 L Final MCV 14:34:00 92 fL 80-100 Final MCH 14:34:00 31 pg 27-32 Final MCHC 14:34:00 33.9 g/dL 32.0-36.0 Final RDW 14:34:00 13.8 % 11.0-16.0 Final MPV 14:34:00 7.7 fL 6.0-11.0 Final Platelet Count 14:34:00 135 K/uL 150-500 L Final Panel Description: Creatinine Final Creatinine 15:06:00 0.660 mg/dL 0.500-1.050 Final GFR 15:06:00 104.9 mL/min/1. 73 m2 Final Panel Description: AST Final AST 15:06:00 40 U/L 10-35 H Final Panel Description: ALT Final ALT 15:06:00 16 IU/L 6-32 Final Panel Description: Alkaline Phosphatase Final Alk Phos 15:06:00 98 U/L 31-125 Final Panel Description: CRP Final CRP 15:06:00 0.02 MG/DL 0.00-0.80 Final Panel Description: Complement C3 Final Complement C3 11:32:00 80.3 mg/dL 83.0-193.0 L Final Panel Description: Complement C4 Final Complement C4 11:32:00 7.3 mg/dL 15.0-57.0 L Final CBR=Confirme d By Repeat Analysis Advance Directives Directive Yes / No Effective Date File Name No Information Encounters Encounter Description Practice Location Reason(s) For Visit Diagnoses Date Provider Providers Copied on Encounter Office/Outpa tient Visit, Est [facility], [address], [place], [address], tel:[phone] [facility] [place] Follow Up of Sjogren's (chief complaint) Sjogren syndrome with keratoconjun ctivitisAnem ia, unspecifiedA bnormal results of liver function studiesDecre ased white blood cell count, unspecifiedC arpal tunnel syndrome, right upper limb 4 Eder Luke. [facility] [address], [place], [place], [facility], . tel:[phone] Referring Provider: Marly Winslow, [facility] [address], [place], [address]. tel:[phone] Office/Outpa tient Visit, Est [facility], [address], [place], [address], tel:[phone] [facility] Follow Up of Sjogren's (chief complaint) Sjogren syndrome with keratoconjun ctivitisDecr eased white blood cell count, unspecifiedE levation of levels of liver transaminase levelsRash and other nonspecific skin eruption 3 Eder Luke. [facility] [address], [place], [address], [place]. tel:[phone] Referring Provider: aMrly Winslow, [facility] [address], [place], [address]. tel:[phone] Office/Outpa tient Visit, Est [facility], [address], [place], [address], [place] tel:[phone] [facility] Follow Up of Sjogren's (chief complaint) Sjogren syndrome with keratoconjun ctivitisAbno rmal results of liver function studies 3 Eder Luke. [facility] [address], [place], [address], [place]. tel:[phone] Referring Provider: Marly Winslow, [facility] [address], [place], [address]. tel:[phone] Office/Outpa tient Visit, New [facility], [address], [place], [address], [place] tel:[phone] [facility] [place] Sjogren's (chief complaint) Sjogren syndrome with keratoconjun ctivitisElev ation of levels of liver transaminase levelsMiscar riageAnemia 3 Eder Luke. [facility] [address], [place], [address], [place]. tel:[phone] Referring Provider: Marly Winslow, [facility] [address], [place], [address]. tel:[phone] Office/Outpa tient Visit, Est [facility], [address], [place], [address], [place] tel:[phone] [facility] , Sjogren's (chief complaint) LeukopeniaSj ogren syndromeElev ated liver enzymesBone healthHigh risk medication monitoring 8 Ed Espinoza. [facility] [address], [place], [address], [place]. tel:[phone] Referring Provider: Alexis Winslow, [facility] [address], [place], [address]. tel:[phone] Office/Outpa tient Visit, Est [facility], [address], [place], [address], [place] tel:[phone] [facility] , Sjogren syndromeElev ated liver enzymesBone healthHigh risk medication monitoringLe ukopenia 8 Ed Espinoza. [facility] [address], [place], [address], [place]. tel:[phone] Referring Provider: Alexis Winslow, [facility] [address], [place], [address]. tel:[phone] Office/Outpa tient Visit, Est [facility], [address], [place], [address], [place] tel:[phone] [facility] , Sjogren's (chief complaint) Sjogren syndromeHigh risk medication monitoringBo [facility] ed liver enzymes 8 Ed Espinoza. [facility] [address], [place], [address], [place]. tel:[phone] Referring Provider: Alexis Winslow, [facility] [address], [place], [address]. tel:[phone] Office/Outpa tient Visit, New [facility], [address], [place], [address], [place] tel:[phone] [facility] , Abnormal Lab Study (chief complaint) Positive AntibodyElev ated liver enzymes Ed Espinoza. [facility] [address], [place], [address], [place]. tel:[phone] Referring Provider: Alexis Winslow, [facility] [address], [place], [address]. tel:[phone] Family History Family Member Type Diagnosis Age At Onset Problem (finding) No family hist ory of Systemic lupus erythematosus Problem Family history of hypertensi on Payers Payer name Insurance type Covered democrat ID Authormarsa kristen(s) [facility] [id number] Social History Type Description Quantity Date Captured Comments Alcohol Use Details Unknown Caffeine Use Details Unknown Tobacco Use Status Ex-cigarette smoker Smoking Status Former smoker Tonyaagusto laureen 1 child Smoking Tobacco Use Details Cigarette: Age Stopped: 26 Cigarette: No Details Available Sex Female Vital Signs Date / Time: Height Weight BMI Pulse Rate Blood Pressure Temperature Respiratory Rate Body Surface Area Head Circumference Head Circ. Percentile Wt./Oliver. Percentile BMI percentile Pulse Ox Inhaled Ox 1:47 PM 86.727 kg (191.20 lbs) 102/60 mm[Hg] 98.10 F Chief Complaint And Reason For Visit From encounter dated '10/21/2023 13:45'. Follow Up of Sjogren's (chief complaint) Reason For Referral Reason For Referral No Information History Of Present Illness Encounter Date Complaint History Of Prese nt Illness Giuseppe-26-2024 Follow Up of Sjogren's Dec-27-2023 Follow Up of Sjogren's Follow Up of Sjogren's Sjogren's Sjogren's Sjogren's Sjogren's Abnormal Lab Study Functional Status Date Functional Assessmen t No Information Instructions Date Instruction Additional Infor matisma No Information Assessments Type Assessment Date assessment Sjogren syndrome with keratoconj unctivitis assessment Anemia, unspecified assessment Abnormal results of liver functi on studies assessment Decreased white blood cell count , unspecified assessment Carpal tunnel syndrome, right up per limb Patient Care Teams Name Effective Dates (start - stop) Status Members No Information
== END 2024-01-21 14:16 | disposition home or self-care (01) ==
PROVIDERS: PCP Family Medicine; Visit Provider Family Medicine
DX: Z12.4 Encounter for screening for malignant neoplasm of cervix (principal); E03.9 Hypothyroidism, unspecified; K74.60 Unspecified cirrhosis of liver; E83.51 Hypocalcemia
CPT/HCPCS: 80053; 80061; 84443; 88141; 88142

== ENCOUNTER 2024-02-02 07:19 | Outpatient (CLI) | payer BC, SELFPAY ==
--- OUTSIDE RECORDS SUMMARY | 2024-02-02 07:21 | XMS_ITS | Clinical Summary ---
Author Organization [place] Address [address] [place] [address] Care Team Providers Care Metal Wire Technician Name Role Phone Resident/Fellow, Physician Unavailable Unava ilable Allergies No known active allergies Medications Medication Sig Dispensed Refills Start Date End Date Status levothyroxine (SYNTHROID/LEVOTHROID) 150 MCG tablet Take 1 tablet by mouth daily at 2 pm 01/15/2022 Active pilocarpine (SALAGEN) 5 MG tablet Take 1 tablet by mouth 3 times daily 05/06/2022 Active Active Problems Problem Noted Date [...] 124.7 kg (275 lb) 06/05/2022 4:01 PM CLOTHING BUSHELER Height 165.1 cm (5' 5) 06/05/2022 4:01 PM CLOTHING BUSHELER Body Mass Index 45.76 06/05/2022 4:01 PM CLOTHING BUSHELER Plan of Treatment Health Maintenance Due Date Last Done Comments ADVANCE CARE PLANNING 1981 ANNUAL REVIEW OF HM ORDERS 1981 MAMMO SCREENING 1981 YEARLY PREVENTIVE VISIT 1981 HEPATITIS A IMMUNIZATION (1 of 2 - Risk 2-dose series) 2000 HEPATITIS B IMMUNIZATION (1 of 3 - 19+ 3-dose series) 2000 PAP 2002 DTAP/TDAP/TD IMMUNIZATION (1 - Tdap) 05/23/2010 05/22/2010 TSH W/FREE T4 REFLEX 04/25/2023 04/25/2022, 04/03/20 22 PHQ-2 (once per calendar year) 2023 COVID-19 Vaccine ( - season) 2023 INFLUENZA VACCINE (#1) 2023 GLUCOSE 08/28/2025 08/28/2022, 04/28, 04/25/2022, Additional history exists LIPID 04/03/2027 04/03/2022 RSV VACCINE (1 - 1-dose 75+ series) 2056 HEPATITIS C SCREENING Completed 04/03/2022 HIV SCREENING Completed 04/25/2022 HPV IMMUNIZATION Aged Out No longer e ligible based on patient's age to complete this topic MENINGITIS IMMUNIZATION Aged Out No l onger eligible based on patient's age to complete this topic Pneumococcal Vaccine: Pediatrics (0 to 5 Years) and At-Risk Patients (6 to 64 Years) Aged Out No longer eligible based on patient's age to complete this topic RSV MONOCLONAL ANTIBODY Aged Out No l onger eligible based on patient's age to complete this topic Procedures Procedure Name Priority Date/Time Associated Diagnosis Comments COMPREHENSIVE METABOLIC PANEL Routine 08/28/2022 10:59 AM CDT Normocytic anemia THYROID STIMULATING HORMONE (TSH) (EXTERNAL RESULT) Routine 04/25/2022 1:35 PM CLOTHING BUSHELER ABSTRACT HIV Routine 04/25/2022 HEPATITIS C (HIM EXTERNAL RESULT) Routine 04/03/2022 4:34 PM CLOTHING BUSHELER LIPID PANEL (EXTERNAL RESULT) Routine 04/03/2022 4:34 PM CLOTHING BUSHELER from Last 3 Months or Most Recently Relevant to Health Maintenance Results * (ABNORMAL) Comprehensive metabolic panel (08/28/2022 10:59 [...] LAB - BLOOD ORDERA BLES U LABORATORY [facility] [place] [facility] [address] [facility], [address] [address], [facility] [phone] * (ABNORMAL) Thyroid Stimulating Hormone (TSH) (External Result) (04/25/2022 1:35 PM CLOTHING BUSHELER) [facility] TSH (External) 5.760(A) 0.270 - 4.200 uIU/mL [facility] Blood 04/25/2022 1:35 PM CLOTHING BUSHELER Narrative [facility] - 04/25/2022 1:35 PM CLOTHING BUSHELER LAB RESULTS [facility] Provider Outside LAB - HIM EXTERNAL R ESULT Performing Organization Address City/[facility]/ZIP Co de Phone Number [facility] [address] [place] [address], [facility] [phone] * ABSTRACT HIV (04/25/2022) [facility] HIV 1&2 EXT Non-Reacti ve Non-Reacti ve [facility] Blood 04/25/2022 Provider Outside LAB - [facility] EXTERNAL R ESULT Performing Organization Address City/[facility]/ZIP Co de Phone Number [facility] [address] [place] [address], [facility] [phone] * (ABNORMAL) Lipid Panel (External Result) (04/03/2022 4:34 PM CLOTHING BUSHELER) [facility] Cholesterol (External) 122 90 - 199 mg/dL [facility] Triglycerides (External) 120 40 - 149 mg/dL [facility] HDL Cholesterol (External) 20(L) >=50 mg/dL [facility] LDL Cholesterol Calculated (External) 78 <100 mg/dL [facility] Blood 04/03/2022 4:34 PM CLOTHING BUSHELER [facility] - 04/03/2022 4:34 PM CLOTHING BUSHELER [facility] LAB RESULT Provider Outside LAB - HIM EXTERNAL R ESULT [facility] [address] [place] [address], [facility] [phone] * Hepatitis C (HIM External Result) (04/03/2022 4:34 PM CLOTHING BUSHELER) Hep C HIM See Scanned Document [facility] Comment:NEGATIVE 04/03/2022 4:34 PM CLOTHING BUSHELER [facility] - 04/03/2022 4:34 PM [facility] LAB RESULT Provider Outside LAB - [facility] EXTERNAL R ESULT [facility] [address] [place] [address], [facility] [phone] from Last 3 Months or Most Recently Relevant to Health Maintenance Care Teams Metal Wire Technician Relationship Specialty Start Date End Date Resident/Fellow, Physician 04/25/22
--- OUTSIDE RECORDS SUMMARY | 2024-02-02 07:21 | XMS_ITS | Encounter Summary ---
Author Organization [facility] Address [address] [place] [address] Care Team Providers Care Pouncer Name Role Phone Resident/Fellow, Physician Unavailable Unava Nelly So MD Primary Care Provider [phone] Encounter Details Date Type Department Care Team (Late st Contact Info) Description 05/20/2022 [facility] Medical Advice [facility] [address] [place] [address] Stephanie Lai MD [address] [place] [address] Social History Tobacco Use Types [...] Coronavirus/COVID-19? No / Unsure 05/20/2022 12:20 PM CLAIM SERVICE REPRESENTATIVE documented as of this encounter Plan of Treatment Not on file documented as of this encounter Visit Diagnoses Not on filedocumented in this encounter Care Teams Pouncer Relationship Specialty Start Date End Date Nelly Estevez MD [address] [address] PCP - General Family Medicine 04/25/22 05/26/23 Resident/Fellow, Physician 04/25/22 documented as of this encounter
--- OUTSIDE RECORDS SUMMARY | 2024-02-02 07:21 | XMS_ITS | Encounter Summary ---
Author Organization [place] Address [address] [place] [address] Care Team Providers Care Sack Keeper Name Role Phone Resident/Fellow, Physician Unavailable Unava Nelly So MD Primary Care Provider [phone] Encounter Details Date Type Department Care Team (Late st Contact Info) Description 06/09/2022 [facility] [address] [place] [address] Stephanie Lai MD [address] [place] [address] Social History Tobacco Use Types [...] Coronavirus/COVID-19? No / Unsure 06/09/2022 9:53 AM MULTIMEDIA COORDINATOR documented as of this encounter Plan of Treatment Not on file documented as of this encounter Visit Diagnoses Not on filedocumented in this encounter Care Teams Sack Keeper Relationship Specialty Start Date End Date Nelly Estevez MD [address] [address] PCP - General Family Medicine 04/25/22 05/26/23 Resident/Fellow, Physician 04/25/22 documented as of this encounter
--- OUTSIDE RECORDS SUMMARY | 2024-02-02 07:21 | XMS_ITS | Encounter Summary ---
Author Organization [place] Address [address] [place] [address] Care Team Providers Care Senior Cyber Intelligence Analyst Name Role Phone Resident/Fellow, Physician Unavailable Unava Nelly So MD Primary Care Provider [phone] Encounter Details Date Type Department Care Team (Late st Contact Info) Description 06/06/2022 [facility] Medical Advice [facility] [address] [place] [address] Stephanie Lai MD [address] [place] [address] Social History Tobacco Use Types [...] Coronavirus/COVID-19? No / Unsure 06/09/2022 9:53 AM FPGA ENGINEER documented as of this encounter Plan of Treatment Not on file documented as of this encounter Visit Diagnoses Not on filedocumented in this encounter Care Teams Senior Cyber Intelligence Analyst Relationship Specialty Start Date End Date Nelly Estevez MD [address] [address] PCP - General Family Medicine 04/25/22 05/26/23 Resident/Fellow, Physician 04/25/22 documented as of this encounter
--- OUTSIDE RECORDS SUMMARY | 2024-02-02 07:21 | XMS_ITS | Encounter Summary ---
Author Organization [place] Address [address] [place] [address] Care Team Providers Care Pin Setter Name Role Phone Resident/Fellow, Physician Unavailable Unava ilNelly Arce MD Primary Care Provider [phone] Encounter Details Date Type Department Care Team (Late st Contact Info) Description 05/26/2022 [facility] Medical Advice [facility] [address] [address] Suni Latham, TONI Social History Tobacco Use Types Packs/Day Years [...] Coronavirus/COVID-19? No / Unsure 05/20/2022 12:20 PM SHOE PULLER documented as of this encounter Plan of Treatment Not on file documented as of this encounter Visit Diagnoses Not on filedocumented in this encounter Care Teams Pin Setter Relationship Specialty Start Date End Date Nelly Estevez MD [address] [address] PCP - General Family Medicine 04/25/22 05/26/23 Resident/Fellow, Physician 04/25/22 documented as of this encounter
--- OUTSIDE RECORDS SUMMARY | 2024-02-02 07:21 | XMS_ITS | Referral Summary ---
Author Organization [facility] Address [address] [place] [address] Care Team Providers Care Cooling Tower Operator Name Role Phone Resident/Fellow, Physician Unavailable [...] 124.7 kg (275 lb) 06/05/2022 4:01 PM DRAIN TECHNICIAN Height 165.1 cm (5' 5) 06/05/2022 4:01 PM DRAIN TECHNICIAN Body Mass Index 45.76 06/05/2022 4:01 PM DRAIN TECHNICIAN Plan of Treatment Not on file Procedures Procedure Name Priority Date/Time Associated Diagnosis Comments COMPREHENSIVE METABOLIC PANEL Routine 08/28/2022 10:59 AM CDT Normocytic anemia THYROID STIMULATING HORMONE (TSH) (EXTERNAL RESULT) Routine 04/25/2022 1:35 PM DRAIN TECHNICIAN ABSTRACT HIV Routine 04/25/2022 HEPATITIS C (HIM EXTERNAL RESULT) Routine 04/03/2022 4:34 PM DRAIN TECHNICIAN LIPID PANEL (EXTERNAL RESULT) Routine 04/03/2022 4:34 PM DRAIN TECHNICIAN from Last 3 Months or Most Recently [...] LAB - BLOOD ORDERA BLES UU LABORATORY [facility] [place] [facility] [address] [facility], Room [address] [address] [phone] * (ABNORMAL) Thyroid Stimulating Hormone (TSH) (External Result) (04/25/2022 1:35 PM DRAIN TECHNICIAN) [facility] TSH (External) 5.760(A) 0.270 - 4.200 uIU/mL [facility] Blood 04/25/2022 1:35 PM DRAIN TECHNICIAN Narrative [facility] - 04/25/2022 1:35 PM DRAIN TECHNICIAN LAB RESULTS [facility] Provider Outside LAB - HIM EXTERNAL R ESULT [facility] [address] [place] [address], [facility] [phone] * ABSTRACT HIV (04/25/2022) [facility] HIV 1&2 EXT Non-Reacti ve Non-Reacti ve [facility] Blood 04/25/2022 Provider Outside LAB - HIM EXTERNAL R ESULT [facility] [address] [place], [place] [address] [phone] * (ABNORMAL) Lipid Panel (External Result) (04/03/2022 4:34 PM DRAIN TECHNICIAN) Cholesterol (External) 122 90 - 199 mg/dL [facility] Triglycerides (External) 120 40 - 149 mg/dL [facility] HDL Cholesterol (External) 20(L) >=50 mg/dL [facility] LDL Cholesterol Calculated (External) 78 <100 mg/dL [facility] Blood 04/03/2022 4:34 PM DRAIN TECHNICIAN [facility] - 04/03/2022 4:34 PM [facility] RESULT Provider Outside LAB - HIM EXTERNAL R ESULT Performing Organization Address [facility] Co de Phone Number [facility] [address] [place], [place] [address] [phone] * Hepatitis C (HIM External Result) (04/03/2022 4:34 PM DRAIN TECHNICIAN) Hep C HIM See Scanned Document [facility] Comment:NEGATIVE 04/03/2022 4:34 PM DRAIN TECHNICIAN [facility] - 04/03/2022 4:34 PM [facility] RESULT Provider Outside LAB - HIM EXTERNAL R ESULT Performing Organization Address City/[facility]/ZIP Co de Phone Number [facility] [address] [place], [place] [address] [phone] from Last 3 Months or Most Recently Relevant to Health Maintenance Care Teams Cooling Tower Operator Relationship Specialty Start Date End Date Resident/Fellow, Physician 12/30/22
--- OUTSIDE RECORDS SUMMARY | 2024-02-02 07:21 | XMS_ITS | Encounter Summary ---
Author Organization [facility] Address [address] [place] [address] Care Team Providers Care Grape Crusher Name Role Phone Resident/Fellow, Physician Unavailable Unava ilNelly Arce MD Primary Care Provider [phone] Encounter Details Date Type Department Care Team (Late st Contact Info) Description 07/23/2022 Telephone [facility] [address] [place] [id number] Sofia Gillespie, RN Social History Tobacco Use [...] on filedocumented in this encounter Care Teams Grape Crusher Relationship Specialty Start Date End Date Nelly Estevez MD [address] [address] PCP - General Family Medicine 04/25/22 05/26/23 Resident/Fellow, Physician 04/25/22 documented as of this encounter
--- OUTSIDE RECORDS SUMMARY | 2024-02-02 07:21 | XMS_ITS | Encounter Summary ---
Author Organization [place] Address [address] [place] [address] Care Team Providers Care Parking Meter Collector Name Role Phone Resident/Fellow, Physician Unavailable Unava Nelly So MD Primary Care Provider [phone] Encounter Details Date Type Department Care Team (Late st Contact Info) Description 05/30/2022 [facility] Medical Advice [facility] [address] [place] [address] Stephanie Lai MD [address] [place] [address] Social History Tobacco Use Types [...] Coronavirus/COVID-19? No / Unsure 06/02/2022 1:22 PM BLOCK MASON documented as of this encounter Plan of Treatment Not on file documented as of this encounter Visit Diagnoses Not on filedocumented in this encounter Care Teams Parking Meter Collector Relationship Specialty Start Date End Date Nelly Estevez MD [address] [address] PCP - General Family Medicine 04/25/22 05/26/23 Resident/Fellow, Physician 04/25/22 documented as of this encounter
--- OUTSIDE RECORDS SUMMARY | 2024-02-02 07:22 | XMS_ITS | Continuity of Care Document ---
Author Organization [facility] Address [address] [address] [place] [address] Phone Care Team Providers Care Plant Guard Name Role Phone Malka COPELAND Sofia Unavailable Unavailable Allergies, Adverse Reactions, Alerts Substance [...] Active Procedures Procedure Date Routine Serum Collection Routine Serum Collection FibroScan Offic/outpt E&m Estab [...] Diagnoses Date Provider Providers Copied on Encounter [facility], [address] [address], [place], [place], [id number], [place] tel:[phone] [place] [address] No Information 4 Malka Black. [address] [facility], [address], [id number], [place]. tel:[phone] [facility] [place], [address] [address], [place], [place], [id number], [place] tel:[phone] [facility] Other specified abnormal findings of blood chemistry 4 Malka Black. [address] [facility], [address], [id number], [place]. tel:[phone] Referring Provider: Referral Self, USE FOR SELF REFERRALS. [facility] [place], [address] [address], [place], [place], [id number], [place] tel:[phone] [place] [address] Elevated liver function tests 4 Malka Black. [address] [facility], [address], [id number], [place]. tel:[phone] [facility] [place], [address] [address], [place], [id number], [place] tel:[phone] [facility] Alcoholic cirrhosis of liver without ascites 4 Malka Black. [address] [facility], [address], [id number], [place]. tel:[phone] Referring Provider: Referral Self, USE FOR SELF REFERRALS. [facility] [place], [address] [address], [place], [id number], [place] tel:[phone] [facility] Alcoholic cirrhosis of liver without ascites 3 Malka Black. [address] [facility], [facility] [address], [place], [id number], [place]. tel:[phone] Referring Provider: Referral Self, USE FOR SELF REFERRALS. Offic/outpt E&m Estab Mod-hi 2 [facility] [place], [address] [address], [place], [id number], [place] tel:[phone] [facility] GI Symptoms or Concerns (chief complaint) Alcoholic cirrhosis of liver without ascitesAutoimm une hepatitis 3 Watemy Black. [address] [facility], [facility] [address], [place], [id number], [place]. tel:[phone] Referring Provider: Referral Self, USE FOR SELF REFERRALS. [facility], [address] [address], [place], [id number], [place] tel:[phone] [facility] Alcoholic cirrhosis of liver without ascitesAbnorma l liver function test 3 No Information [facility] [place], [address] [address], [place], [id number], [place] tel:[phone] [facility] Autoimmune hepatitis 3 Malka Black. [address] [facility], [facility] [address], [place], [id number], [place]. tel:[phone] Referring Provider: Referral Self, USE FOR SELF REFERRALS. [facility] [place], [address] [address], [place], [id number], [place] tel:[phone] [facility] Autoimmune hepatitis 3 Malka Black. [address] [facility], [place] [address], [place], [id number], [place]. tel:[phone] [facility] [place], [address] [address], [place], [id number], [place] tel:[phone] [facility] Other specified abnormal findings of blood chemistry 3 Malka Black. [address] [facility], [address], [id number], [place]. tel:[phone] Referring Provider: Referral Self, USE FOR SELF REFERRALS. [facility] [place], [address] [address], [place], [id number], [place] tel:[phone] [facility] Abnormal liver function test 3 Marty Bennett. [address] [facility], [facility] [address], [place], [place], [id number], [place]. tel:[phone] [facility], [address] [address], [place], [address], [place] tel:[phone] [facility] Unspecified cirrhosis of liver 3 Malka Black. [address] [facility], [address], [id number], [place]. tel:[phone] Referring Provider: Referral Self, USE FOR SELF REFERRALS. Offic/outpt E&m Estab Mod-hi 2 [facility], [address] [address], [place], [id number], [place] tel:[phone] [facility] GI Symptoms or Concerns (chief complaint) Cirrhosis of liver without ascites, unspecified hepatic cirrhosis type 3 Malka Black. [address] [facility], [address], [id number], [place]. tel:[phone] Referring Provider: Sofia COPELAND, [address] [place] [address] [address], [place], [address] . tel:[phone] [facility], [address] [address], [place], [id number], [place] tel:[phone] [facility] Alcoholic cirrhosis of liver without ascites 3 Malka Black. [address] [place] [address], [facility] [address], [place], [place], [id number], [place]. tel:[phone] Referring Provider: Sofia COPELAND, [address] [facility] [address], [place], [address] . tel:[phone] [facility], [address] [address], [place], [id number], [place] tel:[phone] [facility] No Information 3 Malka Black. [address] [facility], [address], [place], [place], [address], [place]. tel:[phone] Telephone E&M III 21-30 Min MELLISA [facility], [address] [address], [place], [id number], [place] tel:[phone] [facility] GI Symptoms or Concerns (chief complaint) Alcoholic cirrhosis of liver without ascitesAutoimm une hepatitis Apr- 3 Malka Black. [address] [facility], [facility] [address], [place], [place], [id number], [place]. [phone] Referring Provider: Referral Self, USE FOR SELF REFERRALS. [facility], [address] [address], [place], [id number], [place] tel:[phone] [facility] Alcoholic cirrhosis of liver without ascites Apr- 3 Malka Black. [address] [facility], [facility] [address], [place], [place], [id number], [place]. tel:[phone] Referring Provider: Referral Self, USE FOR SELF REFERRALS. [facility], [address] [address], [place], [id number], [place] tel:[phone] [facility] GI Symptoms or Concerns (chief complaint) Portal hypertensive gastropathyPor mirza hypertension Apr-1 - 3 Link MD Malagon. [address] [facility], [address], [place], [place], [id number], [place]. tel:[phone] Referring Provider: Referral Self, USE FOR SELF REFERRALS. [facility], [address] [address], [place], [place], [id number], [place] tel:[phone] [facility] Alcoholic cirrhosis of liver without ascites 3 Malka DINORAH Sofia. [address] [facility], [facility] [address], [place], [place], [id number], [place]. tel:[phone] New Level 4 [facility], [address] [address], [place], [place], [id number], [place] tel:[phone] [facility] GI Symptoms or Concerns (chief complaint) Abnormal liver function test 3 Malka DINORAH Sofia. [address] [facility], [address], [place], [place], [id number], [place]. tel:[phone] [facility], [address] [address], [facility] [place], [id number], [place] tel:[phone] No Information 3 No Information Referring Provider: Cristiano COPELAND, [address], [place], [address]. tel:[phone] Family History Family Member Type Diagnosis Age At Onset Father Problem (finding) Alcoholism Immunizations Vaccine Date Status Comments tetanus and diphtheria toxoi ds, adsorbed, preservative free, for adult use (5 Lf of tetanus toxoid and 2 Lf of diphtheria toxoid) administered Note: [facility] bi-direct ional interface ; Source: Other Registry Payers Payer name Insurance type Covered democrat ID Authoriza tiemmanuel(s) [employer] [facility] [id number] Social History Type Description Quantity Date Captured [...] elevated smooth muscle antibody level by her marketing programs specialist. We did draw immunoglobulins on August 14 [...] muscle antibody, which was completed through her marketing programs specialist's office. I do not have that lab [...]
--- OUTSIDE RECORDS SUMMARY | 2024-02-02 07:23 | XMS_ITS | Continuity of Care Document ---
Author Organization [facility] Address [address] [place] [address] Phone Care Team Providers Care Optical Effects Camera Operator Name Role Phone Eder DELCID, Marly Unavailable [...] Protein Dna Antibody, Single Strand Dna Antibody, [place] Nuclear Antigen Antibodies Office/Outpatient Visit, Est Routine [...] Protein Dna Antibody, Single Strand Dna Antibody, [place] Nuclear Antigen Antibodies Rheumatoid Factor, IGM Rheumatoid [...] [facility], [address], [place], [address], tel:[phone] [facility] [place] Follow Up of Sjogren's (chief complaint) Sjogren syndrome with keratoconjun ctivitisAnem ia, unspecifiedA bnormal results of liver function studiesDecre ased white blood cell count, unspecifiedC arpal tunnel syndrome, right upper limb 4 Eder Luke. [facility] [address], [place], [place], [facility], . tel:[phone] Referring Provider: Marly Winslow, [facility] [address], [place], [address]. tel:[phone] Office/Outpa tient Visit, Est [facility], [address], [place], [address], tel:[phone] [facility] [place] Follow Up of Sjogren's (chief complaint) Sjogren syndrome with keratoconjun ctivitisDecr eased white blood cell count, unspecifiedE levation of levels of liver transaminase levelsRash and other nonspecific skin eruption 3 Eder Luke. [facility] [address], [place], [address], [place]. tel:[phone] Referring Provider: Marly Winslow, [facility] [address], [place], [address]. tel:[phone] Office/Outpa tient Visit, Est [facility], [address], [place], [address], [place] tel:[phone] [facility] [place] Follow Up of Sjogren's (chief complaint) Sjogren syndrome with keratoconjun ctivitisAbno rmal results of liver function studies 3 Eder Luke. [facility] [address], [place], [address], [place]. tel:[phone] Referring Provider: Marly Winslow, [facility] [address], [place], [address]. tel:[phone] Office/Outpa tient Visit, New [facility], [address], [place], [address], [place] tel:[phone] [facility] [place] Sjogren's (chief complaint) Sjogren syndrome with keratoconjun ctivitisElev ation of levels of liver transaminase levelsMiscar riageAnemia 3 Eder Luke. [facility] [address], [place], [address], [place]. tel:[phone] Referring Provider: Marly Winslow, [facility] [address], [place], [address]. tel:[phone] Office/Outpa tient Visit, Est [facility], [address], [place], [address], [place] tel:[phone] [facility] , Sjogren's (chief complaint) LeukopeniaSj ogren syndromeElev ated liver enzymesBone healthHigh risk medication monitoring 8 Ed Espinoza. [facility] [address], [place], [address], [place]. tel:[phone] Referring Provider: Alexis Winslow, [facility] [address], [place], [address]. tel:[phone] Office/Outpa tient Visit, Est [facility], [address], [place], [address], [place] tel:[phone] [facility] , Sjogren syndromeElev ated liver enzymesBone healthHigh risk medication monitoringLe ukopenia 8 Ed Espinoza. [facility] [address], [place], [address], [place]. tel:[phone] Referring Provider: Alexis Winslow, [facility] [address], [place], [address]. tel:[phone] Office/Outpa tient Visit, Est [facility], [address], [place], [address], [place] tel:[phone] [facility] , Sjogren's (chief complaint) Sjogren syndromeHigh risk medication monitoringBo [facility] ed liver enzymes 8 Ed Espinoza. [facility] [address], [place], [address], [place]. tel:[phone] Referring Provider: Alexis Winslow, [facility] [address], [place], [address]. tel:[phone] Office/Outpa tient Visit, New [facility], [address], [place], [address], [place] tel:[phone] [facility] , Abnormal Lab Study (chief complaint) Positive AntibodyElev ated liver enzymes Ed Espinoza. [facility] [address], [place], [address], [place]. tel:[phone] Referring Provider: Alexis Winslow, [facility] [address], [place], [address]. tel:[phone] Family History Family Member Type Diagnosis Age At Onset Problem (finding) No family hist ory of Systemic lupus erythematosus Problem Family history of hypertensi on Payers Payer name Insurance type Covered libertarian ID Authormarsa kristen(s) [facility] [id number] Social History Type Description Quantity Date Captured [...]
[2024-02-03 04:00] LABS: HPV Source Endocervical; HPV, High Risk by TMA Not Detected
== END 2024-02-02 07:20 | disposition home or self-care (01) ==
PROVIDERS: PCP Family Medicine; Visit Provider Family Medicine
DX: Z12.4 Encounter for screening for malignant neoplasm of cervix (principal)
CPT/HCPCS: 87624; 87625